=== PATIENT | male | born 1990 | race Caucasian/White ===

== ENCOUNTER 2025-01-06 20:23 | Outpatient (REF) | payer SELFPAY ==
[2025-01-06 20:24] VITALS: BP 151/81; PULSE 77; RESP 15; TEMP 36.8; O2SAT 98; BMI 27.8
--- OUTSIDE RECORDS SUMMARY | 2025-01-06 20:37 | XMS RPT_ITS | CCD ---
Author Organization [facility] Care Team Providers Care Instructor Business Education Name Role Phone GERARDO, MOSHE C Unavailable Unavailable GERARDO, MOSHE C Unavailable Unavailable GERARDO, MOSHE C Unavailable Unavailable NO, DOCTOR ON Unavailable Unavailable NO, DOCTOR ON Unavailable Unavailable Assessment, Health Risk Attending Josea ble Care Physician, No Primary Primary Care Unava ilable Care Physician, No Primary Referring Unava ilable Andrzej Hunt Attending Unavailable Care Physician, No Primary Primary Care Unava ilable Care Physician, No Primary Primary Care Lilianeva Chase Dhillon Attending Unavailable Care Physician, No Primary Referring Unava ilable Care Physician, No Primary Referring Unava ilable Care Physician, No Primary Primary Care Unava ilable Andrzej Hunt Attending Unavailable Care Physician, No Primary Primary Care Physicia n Unavailable Care Physician, No Primary Referring Provider Un available Andrzej Hunt Attending Physician Assessment, Health Risk Attending Physician Lilianev Chase Lamas Attending Physician Problems Active Problems Problem Classification Problem Date Documented Da te Episodic/Chronic Superficial injury; contusion (3 sources) Contusion of right knee, initial encounter; Translations: [Contusion of right knee, initial encounter] Onset: 07-05-2017 Episodic Past or Other Problems Problem Classification Problem Date Documented Date Episodic/Chronic Administrative/social admission (2 sources) Encounter for other administrative examinations; Translations: [Patient encounter status] Onset: 04-15-2024 04-27-2020 Episodic Results Test Name Value Interpretation Reference Range Facility Office Visit Reporton 2024 Office Visit Report [facility] [address] [place] [address] OFFICE VISIT Date of Service: 12/03/24 MR#: [id number] Acct: [id number] Patient: CRISTÓBAL SKINNER Rep #: [id number] : 1990 Provider: LILY Pérez Age/Sex: 34/M Location: [facility] Status: Signed Intake Vital Signs 04/06/23 08:20 Height 5 ft 10 in Intake Visit Reasons: FF PHYSICAL/TITO Allergies No Known Allergies Allergy (Verified 10/19/16 16:57) Office Procedures [facility] Billing Sheet Testing TB Test: Yes Employer Workplace Physicals EKG: Yes [employer]SHA Respiratory Questionnaire: Yes Spirometry (PFT): Yes PPD Procedure TB Med Used: Tuberculin PPD 5 tub. unit/0.1 mL intradermal injection solution was administered Lot number: [id number] Technical Service Engineer: SANOFI date: 03/16/27 PPD Location: Right forearm Date PPD Placed: 12/03/24 Time PPD Placed: 09:20 PPD Placed By: Jolie Erickson Assessment and Plan Assessment and Plan Orders: Orders POC TB PPD SKIN Test (Clinic) 12/05/24 Z02.89 - Encounter for other administrative examinations 12/09/24 0650 Date Andrzej BAUTISTA Cosigner Signature: Date (if applicable) CC: Normal [facility] Absolute lymphocyte countOrd ered By: HEALTH ASSESSMENT on 12-03-2024 Lymphocytes Auto (Unsp spec) [#/Vol] 2.12 10*3/uL 0.83-4.51 [facility] Absolute neutrophil countOrd ered By: HEALTH ASSESSMENT on 12-03-2024 Neutrophils (Bld) [#/Vol] 2.5 10*3/uL 2.0-7.7 [facility] Anion gap in Serum or Plasma Ordered By: HEALTH ASSESSMENT on 12-03-2024 Anion gap [Moles/Vol] 11 mmol/L 5-15 [facility] Automated lymphocyte count a s percentage of total leukocytesOrdered By: HEALTH ASSESSMENT on 12-03-2024 Lymphocytes/100 WBC Auto (Unsp spec) 37.9 % [facility] BUN/creatinine ratioOrdered By: HEALTH ASSESSMENT on 12-03-2024 Urea nitrogen/Creatinine [Mass ratio] 14.9 mg/mg 12-02 [facility] Basophil percentageOrdered B y: HEALTH ASSESSMENT on 12-03-2024 Basophils/100 WBC (Bld) 1.4 % High 0-1 [facility] Bilirubin Test strip Ql (U)O rdered By: HEALTH ASSESSMENT on 12-03-2024 Bilirubin Ql (U) Negative Negative [facility] Bilirubin, totalOrdered By: HEALTH ASSESSMENT on 12-03-2024 Bilirubin [Mass/Vol] 0.56 mg/dL 0.00-1.30 [facility] CBC W/Diff, Automatedon 11-14 Absolute Lymph 2.12 X10 3/uL Normal 0.83-4.51 [facility] Comment on above: Performed By: #### L 501.9910, L500.4050, L100.0100, L400.2010, L500.4100, M100.7900 #### [facility] [address] [place], [address] Absolute Neut 2.5 X10 3/uL Normal 2.0-7.7 [facility] Comment on above: Performed By: #### L 501.9910, L500.4050, L100.0100, L400.2010, L500.4100, M100.7900 #### [facility] [address] [place], [address] Basophils/100 WBC (Bld) 1.4 % High 0-1 [facility] Comment on above: Performed By: #### L 501.9910, L500.4050, L100.0100, L400.2010, L500.4100, M100.7900 #### [facility] [address] [place], [address] Eosinophils/100 WBC (Bld) 5.9 % High 0-5 [facility] Comment on above: Performed By: #### L 501.9910, L500.4050, L100.0100, L400.2010, L500.4100, M100.7900 #### [facility] [address] [place], [address] Erythrocyte distribution width (RBC) [Ratio] 12.5 % Normal 11.6-14.6 [facility] Comment on above: Performed By: #### L 501.9910, L500.4050, L100.0100, L400.2010, L500.4100, M100.7900 #### [facility] [address] [place], [address] Hematocrit (Bld) [Volume fraction] 39.4 % Low 40-54 [facility] Comment on above: Performed By: #### L 501.9910, L500.4050, L100.0100, L400.2010, L500.4100, M100.7900 #### [facility] [address] [place], [address] Hemoglobin (Bld) [Mass/Vol] 13.2 g/dL Normal 13.0-16.5 [facility] Comment on above: Performed By: #### L 501.9910, L500.4050, L100.0100, L400.2010, L500.4100, M100.7900 #### [facility] [address] [place], [address] IG% 0.400 Normal 0.0-0.9 [facility] Comment on above: Result Comment: IG% - Immature Granulocytes (promyelocytes, myelocytes and metamyelocytes) > 1% indicates that a LEFT SHIFT is Present. Performed By: #### L 501.9910, L500.4050, L100.0100, L400.2011, L500.4100, M100.7900 #### [facility] [address] [place], [address] Lymphocytes/100 WBC (Bld) 37.9 % Normal 19-41 [facility] Comment on above: Performed By: #### L 501.9910, L500.4050, L100.0100, L400.2010, L500.4100, M100.7900 #### [facility] [address] [place], [address] MCH (RBC) [Entitic mass] 29.3 pg Normal 27.0-32.0 [facility] Comment on above: Performed By: #### L 501.9910, L500.4050, L100.0100, L400.2010, L500.4100, M100.7900 #### [facility] [address] [place], [address] MCHC (RBC) [Mass/Vol] 33.5 g/dL Normal 32-36 [facility] Comment on above: Performed By: #### L 501.9910, L500.4050, L100.0100, L400.2010, L500.4100, M100.7900 #### [facility] [address] [place], [address] MCV (RBC) [Entitic vol] 87.4 fL Normal 80-94 [facility] Comment on above: Performed By: #### L 501.9910, L500.4050, L100.0100, L400.2010, L500.4100, M100.7900 #### [facility] [address] [place], [address] Monocytes/100 WBC (Bld) 9.1 % Normal 0-10 [facility] Comment on above: Performed By: #### L 501.9910, L500.4050, L100.0100, L400.2010, L500.4100, M100.7900 #### [facility] [address] [place], [address] Neutrophils/100 WBC (Bld) 45.3 % Low 47-70 [facility] Comment on above: Performed By: #### L 501.9910, L500.4050, L100.0100, L400.2010, L500.4100, M100.7900 #### [facility] [address] [place], [address] Nucleated RBC (Bld) [#/Vol] 0 10*3/uL Normal 0-5 [facility] Comment on above: Performed By: #### L 501.9910, L500.4050, L100.0100, L400.2010, L500.4100, M100.7900 #### [facility] [address] [place], [address] Platelet mean volume (Bld) [Entitic vol] 11.1 fL Normal 6.2-12.0 [facility] Comment on above: Performed By: #### L 501.9910, L500.4050, L100.0100, L400.2010, L500.4100, M100.7900 #### [facility] [address] [place], [address] Platelets (Bld) [#/Vol] 286 10*3/uL Normal 150-450 [facility] Comment on above: Performed By: #### L 501.9910, L500.4050, L100.0100, L400.2010, L500.4100, M100.7900 #### [facility] [address] [place], [address] RBC (Bld) [#/Vol] 4.51 10*6/uL Low 4.6-6.[address] [facility] Comment on above: Performed By: #### L 501.9910, L500.4050, L100.0100, L400.2010, L500.4100, M100.7900 #### [facility] [address] [place] [place], [address] RDW SD 40.1 fl Normal 35.1-43.9 [facility] Comment on above: Performed By: #### L 501.9910, L500.4050, L100.0100, L400.2010, L500.4100, M100.7900 #### [facility] [address] [place], [address] WBC (Bld) [#/Vol] 5.6 10*3/uL Normal 4.4-11.0 [facility] Comment on above: Performed By: #### L 501.9910, L500.4050, L100.0100, L400.2010, L500.4100, M100.7900 #### [facility] [address] [place], [place], [id number] Calculated very low density lipoprotein (VLDL) cholesterol measurementOrdered By: HEALTH ASSESSMENT on 12-03-2024 Calculated very low density lipoprotein (VLDL) cholesterol measurement 14 mg/dL 5-40 [facility] Carbon dioxide, total [Moles /volume] in Central venous bloodOrdered By: HEALTH ASSESSMENT on 12-03-2024 CO2 [Moles/Vol] 26.0 mmol/L 21.0-32.0 [facility] Chloride assayOrdered By: HE ALTH ASSESSMENT on 12-03-2024 Chloride [Moles/Vol] 100 mmol/L 98-108 [facility] Comprehensive Metabolic Prof ilon 12-03-2024 Albumin [Mass/Vol] 4.8 g/dL Normal 3.5-5.0 [facility] Comment on above: Performed By: #### L 501.9910, L500.4050, L100.0100, L400.2010, L500.4100, M100.7900 #### [facility] [address] [place], [place], [id number] Albumin/Globulin [Mass ratio] 1.7 {ratio} Normal 0.9-2.4 [facility] Comment on above: Performed By: #### L 501.9910, L500.4050, L100.0100, L400.2010, L500.4100, M100.7900 #### [facility] [address] [place] [place], [address] ALK PHOS 79 U/L Normal 40-129 [facility] Comment on above: Performed By: #### L 501.9910, L500.4050, L100.0100, L400.2011, L500.4100, M100.7900 #### [facility] [address] [place], [address] ALT [Catalytic activity/Vol] 21 U/L Normal <=46 [facility] Comment on above: Performed By: #### L 501.9910, L500.4050, L100.0100, L400.2010, L500.4100, M100.7900 #### [facility] [address] [place] [place], [address] AST [Catalytic activity/Vol] 24 U/L Normal <=37 [facility] Comment on above: Performed By: #### L 501.9910, L500.4050, L100.0100, L400.2010, L500.4100, M100.7900 #### [facility] [address] [place] [place], [address] Bilirubin [Mass/Vol] 0.56 mg/dL Normal 0.00-1.30 [facility] Comment on above: Performed By: #### L 501.9910, L500.4050, L100.0100, L400.2010, L500.4100, M100.7900 #### [facility] [address] [place], [address] BUN/CRE 14.9 RATIO Normal 10-20 [facility] Comment on above: Performed By: #### L 501.9910, L500.4050, L100.0100, L400.2010, L500.4100, M100.7900 #### [facility] [address] [place], [address] Calcium [Mass/Vol] 9.7 mg/dL Normal 7.6-11.0 [facility] Comment on above: Performed By: #### L 501.9910, L500.4050, L100.0100, L400.2011, L500.4100, M100.7900 #### [facility] [address] [place], [address] Chloride [Moles/Vol] 100 mmol/L Normal 98-108 [facility] Comment on above: Performed By: #### L 501.9910, L500.4050, L100.0100, L400.2010, L500.4100, M100.7900 #### [facility] [address] [place] [place], [address] CO2 [Moles/Vol] 26.0 mmol/L Normal 21.0-32.0 [facility] Comment on above: Performed By: #### L 501.9910, L500.4050, L100.0100, L400.2010, L500.4100, M100.7900 #### [facility] [address] [place], [address] Creatinine [Mass/Vol] 1.01 mg/dL Normal 0.70-1.20 [facility] Comment on above: Performed By: #### L 501.9910, L500.4050, L100.0100, L400.2010, L500.4100, M100.7900 #### [facility] [address] [place] [place], [address] GAP 11 Normal 5-15 [facility] Comment on above: Performed By: #### L 501.9910, L500.4050, L100.0100, L400.2010, L500.4100, M100.7900 #### [facility] [address] [place], [address] GFR/1.73 sq M.predicted among non-blacks MDRD (S/P/Bld) [Vol rate/Area] 101 mL/min/{1.73_m2} Normal >60 [facility] Comment on above: Result Comment: mL/m in/1.73m2 CKD-EPI Creatinine Equation (2020) Performed By: #### L 501.9910, L500.4050, L100.0100, L400.2010, L500.4100, M100.7900 #### [facility] [address] [place], [address] Globulin (S) [Mass/Vol] 2.8 g/dL Normal 2.2-4.2 [facility] Comment on above: Performed By: #### L 501.9910, L500.4050, L100.0100, L400.2010, L500.4100, M100.7900 #### [facility] [address] [place], [address] Glucose [Mass/Vol] 96 mg/dL Normal 70-99 [facility] Comment on above: Performed By: #### L 501.9910, L500.4050, L100.0100, L400.2010, L500.4100, M100.7900 #### [facility] [address] [place], [address] Potassium [Moles/Vol] 4.0 mmol/L Normal 3.3-5.1 [facility] Comment on above: Performed By: #### L 501.9910, L500.4050, L100.0100, L400.2010, L500.4100, M100.7900 #### [facility] [address] [place] [place], [address] Sodium [Moles/Vol] 137 mmol/L Normal 133-145 [facility] Comment on above: Performed By: #### L 501.9910, L500.4050, L100.0100, L400.2010, L500.4100, M100.7900 #### [facility] [address] [place] [place], [address] T PROT 7.6 g/dL Normal 5.9-8.4 [facility] Comment on above: Performed By: #### L 501.9910, L500.4050, L100.0100, L400.2011, L500.4100, M100.7900 #### [facility] [address] [place], [address] Urea nitrogen [Mass/Vol] 15 mg/dL Normal 4-19 [facility] Comment on above: Performed By: #### L 501.9910, L500.4050, L100.0100, L400.2011, L500.4100, M100.7900 #### [facility] [address] [place] [place], [address] Eosinophil percentageOrdered By: HEALTH ASSESSMENT on 12-03-2024 Eosinophils/100 WBC (Bld) 5.9 % High 0-5 [facility] Erythrocyte distribution wid th ratioOrdered By: HEALTH ASSESSMENT on 12-03-2024 Erythrocyte distribution width (RBC) [Ratio] 12.5 % 11.6-14.6 [facility] Erythrocyte distribution wid th standard deviationOrdered By: HEALTH ASSESSMENT on 12-03-2024 Erythrocyte distribution width (RBC) [Ratio] 40.1 fl 35.1-43.9 [facility] Glomerular filtration rate ( GFR) estimation/1.73 sq m using serum, plasma, or whole bOrdered By: HEALTH ASSESSMENT on 12-03-2024 GFR/1.73 sq M.predicted among non-blacks MDRD (S/P/Bld) [Vol rate/Area] 101 mL/min/{1.73_m2} >60 [facility] Comment on above: mL/min/1.73m2 CKD-EP I Creatinine Equation (2020) Hematocrit Auto (Bld) [Volum e fraction]Ordered By: HEALTH ASSESSMENT on 12-03-2024 Hematocrit (Bld) [Volume fraction] 39.4 % Low 40-54 [facility] Hemoglobin measurementOrdere d By: HEALTH ASSESSMENT on 12-03-2024 Hemoglobin (Bld) [Mass/Vol] 13.2 g/dL 13.0-16.5 [facility] Immature granulocytes/100 WB C Auto (Bld)Ordered By: HEALTH ASSESSMENT on 12-03-2024 Immature granulocytes/100 WBC (Bld) 0.400 % 0.0-0.9 [facility] Comment on above: IG% - Immature Granu locytes (promyelocytes, myelocytes and metamyelocytes) > 1% indicates that a LEFT SHIFT is Present. Ketones Test strip Ql (U)Ord ered By: HEALTH ASSESSMENT on 12-03-2024 Ketones Ql (U) Negative Negative [facility] LDL calc ser/plasOrdered By: HEALTH ASSESSMENT on 12-03-2024 Cholesterol in LDL [Mass/Vol] 115 mg/dL [facility] Comment on above: Bgscaebkia=315-949 m g/dL & Higher Fmnx=547 mg/dL or greaterSampson Equation 2020 for LDL-C Laboratory - Chemistry and C hemistry - challengeOrdered By: HEALTH ASSESSMENT on 12-03-2024 AST [Catalytic activity/Vol] 24 U/L <38 [facility] Lipid Profileon 12-03-2024 CHOL:HDL 3.[address] [facility] Comment on above: Performed By: #### L 501.9910, L500.4050, L100.0100, L400.2010, L500.4100, M100.7900 #### [facility] [address] [place], [place], [id number] (821) Cholesterol [Mass/Vol] 173 mg/dL Normal <=200 [facility] Comment on above: Result Comment: Chol esterol level, Desirable <200 mg/dL Borderline high cholesterol 200-239 mg/dL High cholesterol >=240 mg/dL Recommendations of the NCEP Adult Treatment Panel for the following risk-cutoff thresholds for the [place] population. Performed By: #### L 501.9910, L500.4050, L100.0100, L400.2010, L500.4100, M100.7900 #### [facility] [address] [place], [address] Cholesterol in HDL [Mass/Vol] 45 mg/dL Normal [facility] Comment on above: Result Comment: [place] onal Cholesterol Education Program (NCEP) guidelines: <40 mg/dL: Low HDL-cholesterol (major risk factor for CHD) >= 60 mg/dL: High HDL-cholesterol (negative risk factor for CHD) HDL-cholesterol is affected by a number of factors, e.g. smoking, exercise, hormones, sex and age. Performed By: #### L 501.9910, L500.4050, L100.0100, L400, L500.4100, M100.7900 #### [facility] [address] [place], [address] Cholesterol in LDL [Mass/Vol] 115 mg/dL Normal [facility] Comment on above: Result Comment: Bord aevvkw=853-429 mg/dL Higher Imwp=105 mg/dL or greater Kim Equation 2020 for LDL-C Performed By: #### L 501.9910, L500.4050, L100.0100, L400, L500.4100, M100.7900 #### [facility] [address] [place], [address] Cholesterol in VLDL [Mass/Vol] 14 mg/dL Normal 5-40 [facility] Comment on above: Performed By: #### L 501.9910, L500.4050, L100.0100, L400, L500.4100, M100.7900 #### [facility] [address] [place] [place], [address] Triglyceride [Mass/Vol] 68 mg/dL Normal [facility] Comment on above: Result Comment: The drugs N-Acetylcysteine and Metamizole may falsely depress this assay. Normal range: <150 mg/dL Borderline High: 150-199 mg/dL High: 200-499 mg/dL Very High: >500 mg/dL Performed By: #### L 501.9910, L500.4050, L100.0100, L400.2010, L500.4100, M100.7900 #### [facility] [address], [address] MCV (mean corpuscular volume ) determinationOrdered By: HEALTH ASSESSMENT on 12-03-2024 MCV (RBC) [Entitic vol] 87.4 fL 80-94 [facility] Mean corpuscular hemoglobin (MCH) determinationOrdered By: HEALTH ASSESSMENT on 12-03-2024 MCH (RBC) [Entitic mass] 29.3 pg 27.0-32.0 [facility] Mean corpuscular hemoglobin concentration (MCHC) determinationOrdered By: HEALTH ASSESSMENT on 12-03-2024 MCHC (RBC) [Mass/Vol] 33.5 g/dL 32-36 [facility] Mean platelet volume determi nationOrdered By: HEALTH ASSESSMENT on 12-03-2024 Platelet mean volume (Bld) [Entitic vol] 11.1 fL 6.2-12.0 [facility] Monocyte percentageOrdered B y: HEALTH ASSESSMENT on 12-03-2024 Monocytes/100 WBC (Bld) 9.1 % 0-10 [facility] Neutrophil percentageOrdered By: HEALTH ASSESSMENT on 12-03-2024 Neutrophils/100 WBC (Bld) 45.3 % Low 47-70 [facility] No Panel InformationOrdered By: Andrzej Graves on 12-03-2024 Result Reviewed By LORENA BARNEY [facility] Tuberculin PPD Skin Test (Clinic) Negative [facility] Nucleated red blood cell per centageOrdered By: HEALTH ASSESSMENT on 12-03-2024 Nucleated RBC/100 WBC (Bld) [Ratio] 0 % 0-5 [facility] PSA,Total - Annual Screenon 12-03-2024 PSA,TOT SCREEN 1.19 ng/mL Normal 0.02-4.00 [facility] Comment on above: Result Comment: This test was performed using the [employer] tPSA method. Measured values of a patient??sample can vary depending on the testing procedure used. PSA values determined on patient samples by different testing procedures cannot be used interchangeably. If there is a change in PSA assays while monitoring therapy, sequential testing should be performed to confirm baseline values. Performed By: #### L 501.9910, L500.4050, L100.0100, L400.2011, L500.4100, M100.7900 #### [facility] [address], [address] Platelet countOrdered By: HE ALTH ASSESSMENT on 12-03-2024 Platelets (Bld) [#/Vol] 286 10*3/uL 150-450 [facility] Potassium measurement (mass/ volume)Ordered By: HEALTH ASSESSMENT on 12-03-2024 Potassium (Unsp spec) [Mass/Vol] 4.0 mmol/L 3.3-5.1 [facility] Protein Test strip Ql (U)Ord ered By: HEALTH ASSESSMENT on 12-03-2024 Protein Ql (U) Negative Negative [facility] RBC Auto (Bld) [#/Vol]Ordere d By: HEALTH ASSESSMENT on 12-03-2024 RBC (Bld) [#/Vol] 4.51 10*6/uL Low 4.6-6.[address] [facility] Screening total cholesterol/ high density lipoprotein (HDL) cholesterol ratioOrdered By: HEALTH ASSESSMENT on 12-03-2024 Cholesterol.total/Choles terol in HDL [Mass ratio] 3.83 {ratio} [facility] Serum creatinine measurement (mass/volume)Ordered By: HEALTH ASSESSMENT on 12-03-2024 Creatinine [Mass/Vol] 1.01 mg/dL 0.70-1.20 [facility] Serum globulin measurementOr dered By: HEALTH ASSESSMENT on 12-03-2024 Globulin (S) [Mass/Vol] 2.8 g/dL 2.2-4.2 [facility] Serum glucose measurement (m ass/volume)Ordered By: HEALTH ASSESSMENT on 12-03-2024 Glucose [Mass/Vol] 96 mg/dL 70-99 [facility] Serum or plasma alanine levy otransferase (ALT) measurementOrdered By: HEALTH ASSESSMENT on 12-03-2024 ALT [Catalytic activity/Vol] 21 U/L <47 [facility] Serum or plasma albumin avis urement (mass/volume)Ordered By: HEALTH ASSESSMENT on 12-03-2024 Albumin [Mass/Vol] 4.8 g/dL 3.5-5.0 [facility] Serum or plasma albumin/glob ulin mass ratioOrdered By: HEALTH ASSESSMENT on 12-03-2024 Albumin/Globulin [Mass ratio] 1.7 {ratio} 0.9-2.4 [facility] Serum or plasma alkaline daphne sphatase measurementOrdered By: HEALTH ASSESSMENT on 12-03-2024 ALP [Catalytic activity/Vol] 79 U/L 40-129 [facility] Serum or plasma calcium avis urement (mass/volume)Ordered By: HEALTH ASSESSMENT on 12-03-2024 Calcium [Mass/Vol] 9.7 mg/dL 7.6-11.0 [facility] Serum or plasma cholesterol in HDL measurement (mass/volume)Ordered By: HEALTH ASSESSMENT on 12-03-2024 Cholesterol in HDL [Mass/Vol] 45 mg/dL >40 [facility] Comment on above: National Cholesterol Education Program (NCEP) guidelines:<40 mg/dL: Low HDL-cholesterol (major risk factor for CHD)>= 60 mg/dL: High HDL-cholesterol (negative risk factor for CHD)HDL-cholesterol is affected by a number of factors, e.g. smoking, exercise, hormones, sex and age. Serum or plasma cholesterol measurement (mass/volume)Ordered By: HEALTH ASSESSMENT on 12-03-2024 Cholesterol [Mass/Vol] 173 mg/dL <201 [facility] Comment on above: Cholesterol level, D esirable <200 mg/dLBorderline high cholesterol 200-239 mg/dLHigh cholesterol >=240 mg/dLRecommendations of the NCEP Adult Treatment Panel for the following risk-cutoff thresholds for the [place] population. Serum or plasma urea nitroge n measurement (mass/volume)Ordered By: HEALTH ASSESSMENT on 12-03-2024 Urea nitrogen [Mass/Vol] 15 mg/dL 4-19 [facility] Sodium levelOrdered By: HEAL TH ASSESSMENT on 12-03-2024 Sodium [Moles/Vol] 137 mmol/L 133-145 [facility] Stool Occult Blood iFOBon STOB Negative Normal [facility] Comment on above: Performed By: #### L 501.9910, L500.4050, L100.0100, L400.2011, L500.4100, M100.7900 #### [facility] [address] [place], [address] Stool gastrointestinal hemog lobin detection by immunologic methodOrdered By: HEALTH ASSESSMENT on 12-03-2024 Lower GI hemoglobin IA Ql (Stl) [facility] Total proteinOrdered By: HEA LTH ASSESSMENT on 12-03-2024 Protein [Mass/Vol] 7.6 g/dL 5.9-8.4 [facility] Triglycerides measurementOrd ered By: HEALTH ASSESSMENT on 12-03-2024 Triglyceride [Mass/Vol] 68 mg/dL <199 [facility] Comment on above: The drugs N-Acetylcy steine and Metamizole may falsely depress this assay. Normal range: <150 mg/dLBorderline High: 150-199 mg/dLHigh: 200-499 mg/dLVery High: >500 mg/dL Urinalysis, Routine (Dipstic k)on 12-03-2024 BILIRUBIN URINE Negative Normal Negative [facility] Comment on above: Order Comment: CLEAN CATCH Performed By: #### L 501.9910, L500.4050, L100.0100, L400.2010, L500.4100, M100.7900 #### [facility] [address] [place] [place], [address] GLUCOSE, UR Normal Normal Normal [facility] Comment on above: Order Comment: CLEAN CATCH Performed By: #### L 501.9910, L500.4050, L100.0100, L400.2010, L500.4100, M100.7900 #### [facility] [address] [place] [place], [address] KETONE UR Negative Normal Negative [facility] Comment on above: Order Comment: CLEAN CATCH Performed By: #### L 501.9910, L500.4050, L100.0100, L400.2010, L500.4100, M100.7900 #### [facility] [address] [place] [place], [address] LEUK ESTERASE Negative Normal Negative [facility] Comment on above: Order Comment: CLEAN CATCH Performed By: #### L 501.9910, L500.4050, L100.0100, L400.2010, L500.4100, M100.7900 #### [facility] [address] [place], [address] OCCULT BLOOD-UR Negative Normal Negative [facility] Comment on above: Order Comment: CLEAN CATCH Performed By: #### L 501.9910, L500.4050, L100.0100, L400.2010, L500.4100, M100.7900 #### [facility] [address] [place] [place], [address] pH UR 7.0 Normal 5.0 - 8.0 [facility] Comment on above: Order Comment: CLEAN CATCH Performed By: #### L 501.9910, L500.4050, L100.0100, L400.2010, L500.4100, M100.7900 #### [facility] [address] [place] [place], [address] PROT DIPSTX Negative Normal Negative [facility] Comment on above: Order Comment: CLEAN CATCH Performed By: #### L 501.9910, L500.4050, L100.0100, L400.2010, L500.4100, M100.7900 #### [facility] [address] [place] [place], [address] SP.GR. DIPSTX 1.005 Normal 1.002-1.030 [facility] Comment on above: Order Comment: CLEAN CATCH Performed By: #### L 501.9910, L500.4050, L100.0100, L400.2010, L500.4100, M100.7900 #### [facility] [address] [place] [place], [address] UROBILI Normal Normal Normal [facility] Comment on above: Order Comment: CLEAN CATCH Performed By: #### L 501.9910, L500.4050, L100.0100, L400.2010, L500.4100, M100.7900 #### [facility] [address] [place], [place], [id number] Urinalysis, Routine (Dipstic k)Ordered By: HEALTH ASSESSMENT on 12-03-2024 Clarity (U) Clear Normal Clear [facility] Comment on above: Order Comment: CLEAN CATCH Performed By: #### L 501.9910, L500.4050, L100.0100, L400.2011, L500.4100, M100.7900 #### [facility] [address] [place] [place], [address] Color (U) Yellow Normal Yellow [facility] Comment on above: Order Comment: CLEAN CATCH Performed By: #### L 501.9910, L500.4050, L100.0100, L400.2011, L500.4100, M100.7900 #### [facility] [address] [place], [place], [id number] Nitrite Ql (U) Negative Normal Negative [facility] Comment on above: Order Comment: CLEAN CATCH Performed By: #### L 501.9910, L500.4050, L100.0100, L400.2010, L500.4100, M100.7900 #### [facility] [address] [place], [place], [id number] Urine glucose detectionOrder ed By: HEALTH ASSESSMENT on 12-03-2024 Glucose Ql (U) Normal mg/dl Normal [facility] Urine leukocyte esterase det ection by dipstickOrdered By: HEALTH ASSESSMENT on 12-03-2024 Leukocyte esterase Test strip Ql (U) Negative Negative [facility] Urine pHOrdered By: HEALTH A SSESSMENT on 12-03-2024 pH (U) 7.0 [pH] 5.0 - 8.0 [facility] Urine specific gravity measu rementOrdered By: HEALTH ASSESSMENT on 12-03-2024 Specific gravity (U) [Rel density] 1.005 1.002-1.030 [facility] Urine urobilinogen measureme ntOrdered By: HEALTH ASSESSMENT on 12-03-2024 Urobilinogen Ql (U) Normal mg/dl Normal [facility] White blood cell (WBC) count Ordered By: HEALTH ASSESSMENT on 12-03-2024 WBC (Bld) [#/Vol] 5.6 10*3/uL 4.4-11.0 [facility] Office Visit Reporton 2024 Office Visit Report [facility] [address] [place] [address] OFFICE VISIT Date of Service: 04/15/24 MR#: [id number] Acct: [id number] Patient: CRISTÓBAL SKINNER Rep #: [id number] : 1990 Provider: LILY Pérez Age/Sex: 33/M Location: [facility]NOW Status: Signed Intake Vital Signs 04/06/23 08:20 Height 5 ft 10 in Intake Visit Reasons: AUDIOGRAM, TITMUS/ WFD Allergies No Known Allergies Allergy (Verified 10/19/16 16:57) Office Procedures [facility] Billing Sheet Testing Hearing (Audiogram) Test: Yes Titmus Screening: Yes Employer Workplace Physicals Physical Exam: Yes 04/29/24 0620 Date Andrzej BAUTISTA Cosigner Signature: Date (if applicable) CC: Normal [facility] Urgent Care Visit Reporton 0 04-15-2024 Urgent Care Visit Report [facility] [address], [address] [place] [address] OFFICE VISIT Date of Service: 04/15/24 MR#: [id number] Acct: [id number] Name: CRISTÓBAL SKINNER Rep #: [id number] : 1990 Provider: LILY Pérez Age/Sex: 33/M Location: [facility]NOW Status: Signed Intake Vital Signs 04/06/23 08:20 Height 5 ft 10 in Intake Visit Reasons: FF PHYSICAL / WFD Allergies No Known Allergies Allergy (Verified 10/19/16 16:57) HPI HPI Details: CRISTÓBAL SKINNER, is a 33 M who presents to the office today for Office Procedures Physical Exam Coding PE Coding Additional Details: 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 Office Visit Reporton 2023 Office Visit Report [facility] [address] [place] [address] OFFICE VISIT Date of Service: 11/21/23 MR#: [id number] Acct: [id number] Patient: CRISTÓBAL SKINNER Rep #: [id number] : 1990 Provider: VIRGINIA Walker Age/Sex: 33/M Location: [facility]NOW Status: Signed with Addenda ADDENDUM by CARMEN Trujillo on 12/26/23 at 1556 Office Procedure Documentation entered by Paige Trujillo MA 12/26/23 15:56: [facility] Billing Sheet Testing TB Test: Yes Employer Workplace Physicals Basic Metabolic Profile (BMP): Yes CBC w/Diff: Yes Complete Metabolic Panel (CMP): Yes EKG: Yes Hemocult: Yes Lipid Panel: Yes OSHA Respiratory Questionnaire: Yes Spirometry (PFT): Yes Urinalysis: Yes Date cc: * Signed Intake Vital Signs 04/06/23 08:20 Height 5 ft 10 in Intake Visit Reasons: FF WELLNESS Allergies No Known Allergies Allergy (Verified 10/19/16 16:57) Office Procedures [facility] Billing Sheet Testing TB Test: Yes Vaccine Flu Vaccine (Single Dose): Yes Employer Workplace Physicals Basic Metabolic Profile (BMP): Yes CBC w/Diff: Yes Complete Metabolic Panel (CMP): Yes EKG: Yes Hemocult: Yes Lipid Panel: Yes OSHA Respiratory Questionnaire: Yes Spirometry (PFT): Yes Urinalysis: Yes Assessment and Plan Assessment and Plan Orders: Orders 12 Lead EKG performed by [facility] 11/21/23 Z02.89 - Encounter for other administrative examinations 12/26/23926 Date Shawnee Bryant [employer] Cosigner Signature: Date (if applicable) CC: Normal [facility] 05-18-2020 [facility] Office Visit (PETE) CRISTÓBAL SKINNER ([id number]) 1990 M Date Time Provider Department 05/18/20 10:00 AM RIA HAWTHORNE During your visit today, we recorded the following information about you: Pulse Blood pressure Weight Height 51/minute 112/76 84.8 kg 1.806 m Ria Hawthorne RN APRN.[facility] 05/18/2020 8:49 PM Signed DEPARTMENT OF GASTROENTEROLOGY - NEW PATIENT/CONSULT REASON FOR VISIT Cristóbal Skinner is a 29 year old male who is scheduled at the request of Aly Lee III for No chief complaint on file.. My final recommendations will be communicated back to the requesting physician by the way of the shared medical record, fax, or via [place] Mail The patient was seen by Aly Lee on 04/17/2020, leading to this consultation. That note has been reviewed and part as follows: SUBJECTIVE: This is a 29 year old male that is here today for 1. wellness exam 2. constipation for few mos.since Oct. Has been requiring increasing doses and frequency of laxatives. Wt lifting and cardio for > 3 d/wk. Normal appetite. Using metamucil daily. Stool q3 days, hard . 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 MGF of colon ca age 75 HISTORY OF PRESENT ILLNESS Cristóbal Skinner is a 29 year old male who presents today for an evaluation of constipation. Patient siad symptoms started since November 2019 the only thing he did mention that he started new was a new job and was drinking protein powder for workout - that he noticed the constipation - he stopped drinking the protein powder but the constipation has never improved - He states sometimes he will have the urge to go but unable to have a bowel movement. He denies blood or black stool, nausea, vomiting or change in weight -Denies abdominal pain - states his only symptoms are bloating and gas with constipation feeling. His stools would be firm and hard and only going a little at a time and feels that he has not completely emptied - he started taking different OTC laxatives to help him go - which he believes did not help - he sates it would sometimes weeks bowel movements Patient has been taking 1 cap full of miralax once daily with metamucil once daily - he goes to the bathroom daily but it's a small amount - Today he had a large BM Patient states he does drink a good amount of water a day He said that he does not notice any food that triggers symptoms - he is a meat and potato alexey - recent labs neg occult in Nov 2019 PAST MEDICAL HISTORY Diagnosis Date - Anger - GERD (gastroesophageal reflux disease) PAST SURGICAL HISTORY Procedure Laterality Date - NONE Current Outpatient Medications Medication Sig Dispense Refill - omeprazole (PRILOSEC ORAL) Take by mouth as needed. - polyethylene glycol 3350 (MIRALAX) 17 gram/dose powder Take 1 cap full twice daily 507 g 3 No current facility-administere d medications for this visit. ALLERGIES No Known Allergies Social History Tobacco Use - Smoking status: Never Smoker - Smokeless tobacco: Never Used Substance Use Topics - Alcohol use: Yes Comment: 0-2 drinks per week - Drug use: No FAMILY HISTORY (grandparents, parents, brothers, sisters, aunts, or uncles) Ulcerative Colitis: No Crohn's Disease: No Colon Cancer: Mother's Father Colon CA Colon Polyps: No IBS: No Celiac disease: No PHYSICAL EXAMINATION BP 112/76 Pulse 51 Ht 5' 11.102 (1.81m) Wt 187 lb (84.8kg) SpO2 99% BMI 26.01 kg/(m2). General Appearance: Well appearing, alert, in no acute distress, well-hydrated, well nourished. Lungs:breath sounds clear to auscultation bilaterally, no crackles, rhonchi, or wheezes Heart: regular rate and rhythm, no murmurs or gallops. Abdomen: not distended, normal bowel sounds, soft and depressible, no guarding or rebound, no palpable mass, no organomegaly, non tender Rectal exam: Deferred. Extremities: no cyanosis or edema Skin: no jaundice, no spider angiomas, no palmar erythema Neuro:alert, oriented x 3, pleasant and in no acute distress IMPRESSION (K59.04) Chronic idiopathic constipation (primary encounter diagnosis) ASSESSMENT/PLAN: 1. Chronic idiopathic constipation - ICD9: 564.00, ICD10: K59.04 - XR ABDOMEN 1V SUPINE - POLYETHYLENE GLYCOL 3350 17 GRAM/DOSE ORAL POWDER - educated patient on increasing water intake and fiber provided patient with instructions - increase miralax twice daily Plan is to follow up in one month monitor stool, frequency along with diet changes with miralax I spent a total of 30 minutes on the date of the service which included preparing to see the patient, [id number] patient care, completing clinical documentation, obtaining and/or reviewing separately obtained history, performing a medically appropriate examination and counseling and educating the patient/family/careg adonis. Tania Hernandez APRN.C (more content not included)... Normal [facility] HISTORY PHYSICALon HISTORY PHYSICAL HNO ID: [id number] Author: Ria Hawthorne Service: ? Author Type: Nurse Practitioner Type: HANDP Filed: 05/18/2020 8:49 PM Note Text: DEPARTMENT OF GASTROENTEROLOGY - NEW PATIENT/CONSULT REASON FOR VISIT Cristóbal Skinner is a 29 year old male who is scheduled at the request of Aly Lee III for No chief complaint on file.. My final recommendations will be communicated back to the requesting physician by the way of the shared medical record, fax, or via [place] Mail The patient was seen by Aly Lee on 04/17/2020, leading to this consultation. That note has been reviewed and part as follows: SUBJECTIVE: This is a 29 year old male that is here today for 1. wellness exam 2. constipation for few mos.since Oct. Has been requiring increasing doses and frequency of laxatives. Wt lifting and cardio for > 3 d/wk. Normal appetite. Using metamucil daily. Stool q3 days, hard . 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 MGF of colon ca age 75 HISTORY OF PRESENT ILLNESS Cristóbal Skinner is a 29 year old male who presents today for an evaluation of constipation. Patient siad symptoms started since November 2019 the only thing he did mention that he started new was a new job and was drinking protein powder for workout - that he noticed the constipation - he stopped drinking the protein powder but the constipation has never improved - He states sometimes he will have the urge to go but unable to have a bowel movement. He denies blood or black stool, nausea, vomiting or change in weight -Denies abdominal pain - states his only symptoms are bloating and gas with constipation feeling. His stools would be firm and hard and only going a little at a time and feels that he has not completely emptied - he started taking different OTC laxatives to help him go - which he believes did not help - he sates it would sometimes weeks bowel movements Patient has been taking 1 cap full of miralax once daily with metamucil once daily - he goes to the bathroom daily but it's a small amount - Today he had a large BM Patient states he does drink a good amount of water a day He said that he does not notice any food that triggers symptoms - he is a meat and potato alexey - recent labs neg occult in Nov 2019 PAST MEDICAL HISTORY Diagnosis Date - Anger - GERD (gastroesophageal reflux disease) PAST SURGICAL HISTORY Procedure Laterality Date - NONE Current Outpatient Medications Medication Sig Dispense Refill - omeprazole (PRILOSEC ORAL) Take by mouth as needed. - polyethylene glycol 3350 (MIRALAX) 17 gram/dose powder Take 1 cap full twice daily 507 g 3 No current facility-administere d medications for this visit. ALLERGIES No Known Allergies Social History Tobacco Use - Smoking status: Never Smoker - Smokeless tobacco: Never Used Substance Use Topics - Alcohol use: Yes Comment: 0-2 drinks per week - Drug use: No FAMILY HISTORY (grandparents, parents, brothers, sisters, aunts, or uncles) Ulcerative Colitis: No Crohn's Disease: No Colon Cancer: Mother's Father Colon CA Colon Polyps: No IBS: No Celiac disease: No PHYSICAL EXAMINATION BP 112/76 Pulse 51 Ht 5' 11.102 (1.81m) Wt 187 lb (84.8kg) SpO2 99% BMI 26.01 kg/(m2). General Appearance: Well appearing, alert, in no acute distress, well-hydrated, well nourished. Lungs:breath sounds clear to auscultation bilaterally, no crackles, rhonchi, or wheezes Heart: regular rate and rhythm, no murmurs or gallops. Abdomen: not distended, normal bowel sounds, soft and depressible, no guarding or rebound, no palpable mass, no organomegaly, non tender Rectal exam: Deferred. Extremities: no cyanosis or edema Skin: no jaundice, no spider angiomas, no palmar erythema Neuro:alert, oriented x 3, pleasant and in no acute distress IMPRESSION (K59.04) Chronic idiopathic constipation (primary encounter diagnosis) ASSESSMENT/PLAN: 1. Chronic idiopathic constipation - ICD9: 564.00, ICD10: K59.04 - XR ABDOMEN 1V SUPINE - POLYETHYLENE GLYCOL 3350 17 GRAM/DOSE ORAL POWDER - educated patient on increasing water intake and fiber provided patient with instructions - increase miralax twice daily Plan is to follow up in one month monitor stool, frequency along with diet changes with miralax I spent a total of 30 minutes on the date of the service which included preparing to see the patient, [id number] patient care, completing clinical documentation, obtaining and/or reviewing separately obtained history, performing a medically appropriate examination and counseling and educating the patient/family/careg adonis. Tania Hernandez APRN.[employer] May 18, 2020 This encounter was performed by Tania Hernandez APRN, under my supervision and I have reviewed her documentation. I performed an examination as well. I concur with the assessment and plan. Ria Hawthorne RN APRN.[employer] Normal [facility] CNOVon 04-17-2020 [facility] Office Visit (FAMPWS) CRISTÓBAL SKINNER ([id number]) 1990 M Date Time Provider Department 04/17/20 9:40 AM ALY LEE III During your visit today, we recorded the following information about you: Pulse Respiration Blood pressure Weight 72/minute 16/minute 112/76 83.5 kg Height 1.803 m Aly Lee III MD 04/17/2020 1:00 PM Signed SUBJECTIVE: This is a 29 year old male that is here today for 1. wellness exam 2. constipation for few mos.since Oct. Has been requiring increasing doses and frequency of laxatives. Wt lifting and cardio for > 3 d/wk. Normal appetite. Using metamucil daily. Stool q3 days, hard . 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 MGF of colon ca age 75. PAST MEDICAL HISTORY Diagnosis Date - Anger - GERD (gastroesophageal reflux disease) Current Outpatient Medications on File Prior to Visit Medication Sig - FLUoxetine (PROZAC) 20 mg capsule Take 1 capsule by mouth once daily. - omeprazole (PRILOSEC ORAL) Take by mouth as needed. No current facility-administere d medications on file prior to visit. FAMILY HISTORY Problem Relation Age of Onset - None Mother - None Father - other (myocardial infarction [Other]) Maternal Uncle 33 of [place] Social History Tobacco Use - Smoking status: Never Smoker - Smokeless tobacco: Never Used Substance Use Topics - Alcohol use: Yes Comment: 0-2 drinks per week - Drug use: No ventricular septal defect . OBJECTIVE: APPEARANCE Well appearing, alert, in no acute distress, well-hydrated, well nourished. NECK Supple, no adenopathy; thyroid symmetric, normal size, no bruits HEART RRR with normal S1 and S2, no murmurs, no gallops, no JVD appreciated LUNG clear to auscultation ABDOMEN bowel sounds normoactive, no bruits, soft, non-tender, non-distended, without organomegaly or palpable masses, no tenderness to palpation BACK: no pain to palpation EXTREMITIES Extremities normal, No deformities, No skin discoloration, No edema and Normal pulses bilaterally. NEURO Awake, alert and oriented x 3, Normal gait, No involuntary motions. and Appearance: well dressed well groomed, cooperative and pleasant Behavior: good eye contact Speech: fluent and coherent Mood: euthymic Affect: appropriate Perceptions: none Thought process: goal directed Thought Content: normal Intelligence level: normal Insight: good Judgment: good Lab Results for CRISTÓBAL SKINNER ( ) as of 04/17/2020 09:59 Ref. Range 12/11/2019 00:00 NA Latest Ref Range: 136 - 145 mmol/L 139 K Latest Ref Range: 3.5 - 5.1 mmol/L 4.1 Chloride Latest Ref Range: 98 - 107 MEQ/L 104 CO2 Latest Ref Range: 21 - 32 MEQ/L 30.0 BUN Latest Ref Range: 7 - 18 MG/DL 13 Creatinine Latest Ref Range: 0.6 - 1.3 MG/DL 1.00 Glucose Latest Ref Range: 74 - 106 MG/DL 87 Albumin Latest Ref Range: 3.2 - 4.6 gm/dL 4.5 AST Latest Ref Range: 8 - 37 U/L 17 Triglyceride Latest Ref Range: 149 mg/dL 41 PSA. Unknown 1.18 WBC Latest Ref Range: 3.9 - 11 K/uL 5.4 RBC Latest Ref Range: 4 - 6 M/uL 4.39 HGB Latest Ref Range: 14 - 16.5 g/dL 13.0 (A) MCV Latest Ref Range: 79 - 98 fL 89.7 MCH Latest Ref Range: 25.4 - 34.6 pg 29.6 MCHC Latest Ref Range: 30 - 36 g/dL 33.0 MPV Latest Ref Range: 7.4 - 10.4 fL 11.1 (A) HCT Latest Ref Range: 39 - 55 % 39.4 Platelet Latest Ref Range: 140 - 440 K/uL 295 Blood Type Recheck 2 Unknown A POS Alk Phos Total Latest Ref Range: 45 - 117 U/L 74 ALT (SGPT) Latest Ref Range: 12 - 78 U/L 25 BASO % Latest Ref Range: 0 - 1.5 % 1.1 Bili Total Latest Ref Range: 0.2 - 1 mg/dL 0.50 Calcium Latest Ref Range: 8.5 - 10.1 mg/dL 8.9 Cholesterol, Total Latest Ref Range: 0 - 200 MG/DL 144 EOS % Latest Ref Range: 1 - 3 % 3.7 (A) GFR Latest Units: mL/MIN 94 GFR AFR AMER Latest Units: mL/MIN 114 HDC-L Latest Ref Range: 41 mg/dL 55 (A) LDL Chol, calculated Latest Ref Range: 130 MG/DL 81 LYMPH % Latest Ref Range: 20 - 30 % 28.8 LYMPH ABS Latest Ref Range: 1.2 - 4 K/uL 1.56 MONO % Latest Ref Range: 2 - 8 % 9.0 (A) NEUT % Latest Ref Range: 40 - 74 % 57.2 NEUT ABS Latest Ref Range: 1.9 - 8 K/uL 3.1 Total Protein Latest Ref Range: 6.4 - 8.2 gm/dL 8.1 ASSESSMENT: recent onset constipation --?IBS with constipation? FHx of colon cancer PLAN: T4, TSH GI referral-consider colonoscopy healthy high fiber diet and stay well hydrated wellness form completed daily metamucil--may use miralax as needed Aly Lee III MD Medical Decision Making: Problems: Moderate: New problem with uncertain prognosis Data: Unique test result(s) reviewed: 3+ Unique test(s) ordered: 2 Risk: Moderate: Drug management Medical Decision Making Level: 4 - Moderate SHADI Gregory MD, III MD 04/17/2020 10:22 AM Signed PLAN: T4, TSH GI referral-consider colonoscopy healthy high fiber (more content not included)... Normal [facility] Free T4on 04-17-2020 Free T4 [Mass/Vol] 1.3 ng/dL Normal 0.9-1.7 [facility] Comment on above: Performed By: #### T , FT4 #### [facility] [address] [place] [address] TSHon 04-17-2020 TSH Qn 1.260 m[IU]/L Normal 0.270-4.200 [facility] Comment on above: Performed By: #### T , FT4 #### [facility] [address] [place], [place] [address] HBSABon 01-07-2019 Hep B Surf Ab 81.9 mIU/mL Normal [facility] ([place]) Comment on above: Result Comment: Anti -HBs Interpretation: 0 to <5.0 mIU/mL Negative Patient is considered to be not immune to infection with HBV. >/= 5.0 and <12.0 mIU/mL Equivocal Unable to determine if anti-HBs is present at levels consistent with immunity. Patient's immune status should be further assessed by considering other clinical information or retesting another sample drawn at a later time. >/= 12.0 mIU/mL Positive Patient is considered to be immune to infection with HBV. It has not been determined what the clinical significance is for values greater than or equal to 12.0 mIU/mL, other than the individual is considered to be immune to HBV infection. Performed By: #### L IPID, HBSAB #### [address] [address] LIPIDon 01-05-2019 Cholesterol in HDL [Mass/Vol] 43 mg/dL Normal 40-59 [facility] ([place]) Comment on above: Result Comment: HDL Reference Interval: Less than 40 Low - high risk 60 or above Optimal/lowers risk Performed By: #### L IPID, HBSAB #### [address] [address] Cholesterol in LDL [Mass/Vol] 103 mg/dL Normal 0-129 [facility] ([place]) Comment on above: Result Comment: LDL is a calculated result and requires a 12-hr fast. LDL Reference Interval: Less than 100 Optimal 100-129 Near or above optimal 130-159 Borderline high risk 160-189 High risk 190 and above Very high risk Performed By: #### L IPID, HBSAB #### [address] [address] Cholesterol [Mass/Vol] 160 mg/dL Normal 50-199 [facility] ([place]) Comment on above: Result Comment: Chol esterol Reference Interval: Less than 200 Desirable 200-239 Borderline high risk 240 and above High risk Performed By: #### L IPID, HBSAB #### [facility] [address] [place] [address] Triglyceride [Mass/Vol] 70 mg/dL Normal 3-149 [facility] ([place]) Comment on above: Result Comment: Trig lyceride Reference Interval: Less than 150 Normal 150-199 Borderline high risk 200-499 High risk 500 or higher Very high risk Performed By: #### L IPID, HBSAB #### [facility] [address] [place] [address] EMERGENCY REPORTon 8 EMERGENCY REPORT [facility] EMERGENCY ROOM REPORT NAME ACCOUNT SEX AGE ADMIT DISCHARGE PT MED. RECORD# NUMBER DATE DATE TYPE CRISTÓBAL SKINNER [id number] M 07/05/17 07/05/17 [id number] ROOM: ER DATE OF : 1990 DICTATING PHYSICIAN: Moshe Gerardo CHIEF COMPLAINT: Right knee pain. HISTORY OF PRESENT ILLNESS: Patient was at work and was working with a firehose and the nozzle of the hose came up and struck him in the right knee, mainly coming over the right patellar area. He is complaining of pain and some swelling to that area, particularly proximal and medially at the kneecap. He is able to weight bear. He is able to move the leg with pain. He has had a previous patellar fracture and is concerned about a reinjury. No numbness or tingling to his extremities. PAST MEDICAL HISTORY: Negative for any chronic medical problems. MEDICATIONS: Takes no medications. ALLERGIES: No known drug allergies. SOCIAL HISTORY: He does not smoke. This did occur at work. PHYSICAL EXAMINATION: This is a 26-year-old male who is alert and appropriate. Patient does not appear toxic or in acute distress. Skin is pink, warm and dry. Vital signs are essentially all within normal limits. Exam is focused to the right lower extremity. Patient has a couple of superficial abrasions and some reddened areas to the anterior right knee, one to the lower lateral patellar area and one to the upper medial patellar area. There is some tenderness with palpation over this area. Mild soft tissue swelling, a little bit more so to the proximal and medial patella and peripatellar area. No bony crepitus. There is no appreciable joint effusion. Normal range of motion though with pain. Normal neurovascular exam. No popliteal pain. No pain over the thigh or calf area. Good peripheral pulses. Vital signs are all unremarkable as noted. DIAGNOSTIC DATA: Right knee x-ray did not show any bony injury. DIAGNOSIS: Right knee contusion. PLAN/DISPOSITION: Ibuprofen, ice as needed, activity as tolerated. He is to follow up with Workman's Compensation doctor in 2-3 days if not improving. Dictated By: Moshe Gerardo MD 07/05/17 11:29 Page 1 of 2 [facility] Emergency Room Report JOB #: [id number] Transcribed By: filiberto 07/05/17 19:29 Electronically signed by: JACQUIE Gerardo M.D. 07/17/17 07:48 Page 2 of 2 [facility] Emergency Room Report Normal [facility] KNEE COMPLETE RT MIN 4 VIEWS on 07-05-2017 [place] [address] Patient: CRISTÓBAL SKINNER. Phone#: : 1990 Age: 26 Gender: M Pt. Type: ER Account: [id number] Location: Ordering: MOSHE GERARDO Exam Date: 07/05/2017/10:53 Family Phys: Charge Code: [id number] Physician: [place] Order #: [id number] DLP Dose#: PROCEDURE: X-RAY KNEE RT COMPLETE 4 VIEWS COMPARISON: None. INDICATIONS: Pain FINDINGS: BONES: Normal. No significant arthropathy or acute abnormality. SOFT TISSUES: Soft tissue swelling of the medial knee. EFFUSION: None visible. OTHER: Negative. CONCLUSION: 1. No acute osseous abnormality. Dictated by: Radha Negrete MD on 07/05/2017 at 11:21 Approved by: Radha Negrete MD on 07/05/2017 at 11:21 Normal [facility] Encounters Encounter Date Encounter Type Care Provider Facility Start: 12-05-2024 End: 12-05-2024 ambulatory No Primary Care Physician Facility:[facility] Start: 12-03-2024 Registered [facility] Work Phone: Start: 12-03-2024 ambulatory Health Risk Assessment Facility:[facility] Start: 12-03-2024 End: 12-03-2024 Patient encounter procedure Andrzej Graves [facility] Work Phone: Start: 12-03-2024 End: 12-03-2024 ambulatory No Primary Care Physician Facility:[facility] Start: 04-15-2024 End: 04-15-2024 ambulatory No Primary Care Physician Facility:[facility] Start: 07-05-2017 End: 07-05-2017 Emergency department patient visit MOSHE Easley GERARDO [facility] Procedures Date Procedure Procedure Detail Performing Clinician Start: 12-03-2024 Measurement of occul t blood in stool specimen using immunoassay No Primary Care Physician Start: 12-03-2024 Urnls dip stick/tabl et reagent auto microscopy No Primary Care Physician Start: 12-03-2024 Prostate specific an tigen measurement No Primary Care Physician Comment on above: This test was perfor med using the [employer] tPSA method. Measured values of a patient sample can vary depending on the testing procedure used. PSA values determined on patient samples by different testing procedures cannot be used interchangeably. If there is a change in PSA assays while monitoring therapy, sequential testing should be performed to confirm baseline values. Plan of Treatment Date Care Activity Detail Author Start: 12-05-2024 End: 12-05-2024 Patient encounter procedure Departed Physician/Provider Office Visit [facility] Work Phone: Immunizations Immunization Date Immunization Notes Care Provider Felisha fontana 01-26-2015 influenza, injectabl e, quadrivalent, preservative free No Primary Care Physician [facility] 06-19-2014 tetanus toxoid, redu janessa diphtheria toxoid, and acellular pertussis vaccine, adsorbed No Primary Care Physician [facility] Payers Date Payer Category Payer Self-pay Unknown [id number] Unknown [id number] Unknown [id number] Unknown [id number] Unknown [id number] [id number] Unknown [id number] Worker's Compensation [id number] Social History Date Type Detail Facility Start: 12-11-2019 [facility] Sex Male [facility] Start: 1990 Sex Assigned At Male [facility] Progress note 04-06-2023 Note Date & Type Note Facility 04-06-2023 Progress note [facility] Progress note 12-09-2020 Note Date & Type Note Facility 12-09-2020 Note HNO ID: [id number] Author: Elli Krishnan Population Health Navigator Service: ? Author Type: ? Type: Progress Notes Filed: 12/09/2020 1:13 PM Note Text: POPULATION HEALTH NAVIGATION OUTREACH Action/FYI I tried to leave a voice message mail box was full sent a my chart message re: pcp No care everywhere Contact made with patient or family member? NO Pt identified by name and : NO Outreach Outcome/Action Unable to reach patient: Left message [employer] message sent Reason for Outreach Attribution: Provider Off-boarding Payer: Payor: AETNA / Plan: AET[employer] CHOICE POS II / Product Type: POS / Care Gap Reviewed:: Reminder: Reminder note to check Health Maintenance for items below Health Maintenance items due: COVID-19 VACCINE(1) Never done HEPATITIS C SCREENING Never done HIV SCREENING Never done INFLUENZA(1) due on 10/14/2020 Advanced Directives Completed: Have you ever planned for future healthcare decisions with a power of cutter grinder, living will, or advance directives? No. Please bring a copy to your next appointment or email to Referrals: N/A Message Sent to Practice: NO Navigation Signature: Elli Krishnan Population Health Navigator December 09, 2020 1:12 PM [facility] Clinical Note 12-09-2020 Note Date & Type Note Facility 12-09-2020 Note Patient Outreach (NE FREDERICAV) CRISTÓBAL SKINNER ([id number]) 1990 M Date Time Provider Department 12/09/20 ELLI KRISHNAN During your visit today, we recorded the following information about you: Elli Krishnan Population Health Navigator 12/09/2020 1:13 PM Signed POPULATION HEALTH NAVIGATION OUTREACH Action/ I tried to leave a voice message mail box was full sent a my chart message re: pcp No care everywhere Contact made with patient or family member? NO Pt identified by name and : NO Outreach Outcome/Action Unable to reach patient: Left message [employer] message sent Reason for Outreach Attribution: Provider Off-boarding Payer: Payor: AETNA / Plan: AETNA CHOICE POS II / Product Type: POS / Care Gap Reviewed:: Reminder: Reminder note to check Health Maintenance for items below Health Maintenance items due: COVID-19 VACCINE(1) Never done HEPATITIS C SCREENING Never done HIV SCREENING Never done INFLUENZA(1) due on 10/14/2020 Advanced Directives Completed: Have you ever planned for future healthcare decisions with a power of cutter grinder, living will, or advance directives? No. Please bring a copy to your next appointment or email to [email or web address] Referrals: N/A Message Sent to Practice: NO Navigation Signature: Elli Krishnan Population Health Navigator December 09, 2020 1:12 PM Allergies As of Date: 12/09/2020 (No Known Allergies) Date Reviewed: 05/18/2020 Reviewed by: Lian Castillo LPN - Fully Assessed Reason for Visit: Population Health Navigation Outreach [7750] Cmt: Offboarding Prescriptions as of 12/09/2020 - polyethylene glycol 3350 (MIRALAX) 17 gram/dose powder Take 1 cap full twice daily - omeprazole (PRILOSEC ORAL) Take by mouth as needed. Meds Comments as of 04/17/2020: Laxatives, prilosec and stool softeners all OTC PRN April 17, 2020 Aspirin PRN Glendy Whitten MA Problem List As Of Date 12/09/2020 Noted Resolved PTSD (post-traumatic stress disorder) [F43.10] 08/24/2017 Encounter Status:Closed by [facility] NAVIGATOR, ELLI Conner on 12/09/20 [facility] Progress note 04-17-2020 Note Date & Type Note Facility 04-17-2020 Note HNO ID: [id number] Author: Aly Lee III Service: ? Author Type: Physician Type: Progress Notes Filed: 04/17/2020 1:00 PM Note Text: SUBJECTIVE: This is a 29 year old male that is here today for 1. wellness exam 2. constipation for few mos.since Oct. Has been requiring increasing doses and frequency of laxatives. Wt lifting and cardio for > 3 d/wk. Normal appetite. Using metamucil daily. Stool q3 days, hard . 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 MGF of colon ca age 74. PAST MEDICAL HISTORY Diagnosis Date - Anger - GERD (gastroesophageal reflux disease) Current Outpatient Medications on File Prior to Visit Medication Sig - FLUoxetine (PROZAC) 20 mg capsule Take 1 capsule by mouth once daily. - omeprazole (PRILOSEC ORAL) Take by mouth as needed. No current facility-administered medications on file prior to visit. FAMILY HISTORY Problem Relation Age of Onset - None Mother - None Father - other (myocardial infarction [Other]) Maternal Uncle 33 of [place] Social History Tobacco Use - Smoking status: Never Smoker - Smokeless tobacco: Never Used Substance Use Topics - Alcohol use: Yes Comment: 0-2 drinks per week - Drug use: No ventricular septal defect . OBJECTIVE: APPEARANCE Well appearing, alert, in no acute distress, well-hydrated, well nourished. NECK Supple, no adenopathy; thyroid symmetric, normal size, no bruits HEART RRR with normal S1 and S2, no murmurs, no gallops, no JVD appreciated LUNG clear to auscultation ABDOMEN bowel sounds normoactive, no bruits, soft, non-tender, non-distended, without organomegaly or palpable masses, no tenderness to palpation BACK: no pain to palpation EXTREMITIES Extremities normal, No deformities, No skin discoloration, No edema and Normal pulses bilaterally. NEURO Awake, alert and oriented x 3, Normal gait, No involuntary motions. and Appearance: well dressed well groomed, cooperative and pleasant Behavior: good eye contact Speech: fluent and coherent Mood: euthymic Affect: appropriate Perceptions: none Thought process: goal directed Thought Content: normal Intelligence level: normal Insight: good Judgment: good Lab Results for CRIST[facility]BAL SKINNER ( ) as of 04/17/2020 09:59 Ref. Range 12/11/2019 00:00 NA Latest Ref Range: 136 - 145 mmol/L 139 K Latest Ref Range: 3.5 - 5.1 mmol/L 4.1 Chloride Latest Ref Range: 98 - 107 MEQ/L 104 CO2 Latest Ref Range: 21 - 32 MEQ/L 30.0 BUN Latest Ref Range: 7 - 18 MG/DL 13 Creatinine Latest Ref Range: 0.6 - 1.3 MG/DL 1.00 Glucose Latest Ref Range: 74 - 106 MG/DL 87 Albumin Latest Ref Range: 3.2 - 4.6 gm/dL 4.5 AST Latest Ref Range: 8 - 37 U/L 17 Triglyceride Latest Ref Range: 149 mg/dL 41 PSA. Unknown 1.18 WBC Latest Ref Range: 3.9 - 11 K/uL 5.4 RBC Latest Ref Range: 4 - 6 M/uL 4.39 HGB Latest Ref Range: 14 - 16.5 g/dL 13.0 (A) MCV Latest Ref Range: 79 - 98 fL 89.7 MCH Latest Ref Range: 25.4 - 34.6 pg 29.6 MCHC Latest Ref Range: 30 - 36 g/dL 33.0 MPV Latest Ref Range: 7.4 - 10.4 fL 11.1 (A) HCT Latest Ref Range: 39 - 55 % 39.4 Platelet Latest Ref Range: 140 - 440 K/uL 295 Blood Type Recheck 2 Unknown A POS Alk Phos Total Latest Ref Range: 45 - 117 U/L 74 ALT (SGPT) Latest Ref Range: 12 - 78 U/L 25 BASO % Latest Ref Range: 0 - 1.5 % 1.1 Bili Total Latest Ref Range: 0.2 - 1 mg/dL 0.50 Calcium Latest Ref Range: 8.5 - 10.1 mg/dL 8.9 Cholesterol, Total Latest Ref Range: 0 - 200 MG/DL 144 EOS % Latest Ref Range: 1 - 3 % 3.7 (A) GFR Latest Units: mL/MIN 94 GFR AFR AMER Latest Units: mL/MIN 114 HDC-L Latest Ref Range: 41 mg/dL 55 (A) LDL Chol, calculated Latest Ref Range: 130 MG/DL 81 LYMPH % Latest Ref Range: 20 - 30 % 28.8 LYMPH ABS Latest Ref Range: 1.2 - 4 K/uL 1.56 MONO % Latest Ref Range: 2 - 8 % 9.0 (A) NEUT % Latest Ref Range: 40 - 74 % 57.2 NEUT ABS Latest Ref Range: 1.9 - 8 K/uL 3.1 Total Protein Latest Ref Range: 6.4 - 8.2 gm/dL 8.1 ASSESSMENT: recent onset constipation --?IBS with constipation? FHx of colon cancer PLAN: T4, TSH GI referral-consider colonoscopy healthy high fiber diet and stay well hydrated wellness form completed daily metamucil--may use miralax as needed Aly Lee III MD Medical Decision Making: Problems: Moderate: New problem with uncertain prognosis Data: Unique test result(s) reviewed: 3+ Unique test(s) ordered: 2 Risk: Moderate: Drug management Medical Decision Making Level: 4 - Moderate Aly Lee III MD [facility] Evaluation note Note Date & Type Note Facility Evaluation note No assessment information availa ble [facility] Work Phone: Progress note Note Date & Type Note Facility Progress note Note Date/Time December 09, 2024 7:50am [facility] [address] [address] OFFICE VISIT Date of Service: 12/03/24 MR#: [id number] Acct: [id number] Patient: CRISTÓBAL SKINNER Rep #: [id number] : 1990 Provider: LILY Pérez Age/Sex: 34/M Location: [facility].NOW Status: Signed Intake Vital Signs 04/06/23 08:20 Height 5 ft 10 in Intake Visit Reasons: FF PHYSICAL/TITO Allergies No Known Allergies Allergy (Verified 10/19/16 16:57) Office Procedures [facility] Billing Sheet Testing TB Test: Yes Employer Workplace Physicals EKG: Yes OSHA Respiratory Questionnaire: Yes Spirometry (PFT): Yes PPD Procedure TB Med Used: Tuberculin PPD 5 tub. unit/0.1 mL intradermal injection solution was administered Lot number: [id number] Technical Service Engineer: SANOFI date: 03/16/27 PPD Location: Right forearm Date PPD Placed: 12/03/24 Time PPD Placed: 09:20 PPD Placed By: Jolie Erickson Assessment and Plan Assessment and Plan Orders: Orders POC TB PPD SKIN Test (Clinic) 12/05/24 Z02.89 - Encounter for other administrative examinations 12/09/24 0650 <Electronically signed by Andrzej BAUTISTA> Date _ Andrzej BAUTISTA Cosigner Signature: Date (if applicable) CC: ~ [facility] Work Phone: Reason for referral (narrative) Note Date & Type Note Facility Reason for referral (narrative) No reason for referral information available [facility] Work Phone: Summary Purpose Family History No Family History Records FoundNo Family History Records FoundNo Family History Records FoundNo Family History Records Found Advance Directives No Advanced Directives Records FoundNo Advanced Directives Records FoundNo Advanced Directives Records FoundNo Advanced Directives Records Found Chief Complaint and Reason for Visit Chief Complaint Admit Date FF PHYSICAL/TITO December 03, 2024 7 :36am TITO FIRE HW December 03, 2024 1 0:45am TB READ/WFD December 05, 2024 1 2:19pm Additional Source Comments (unrecognized sect ion and content) No Status Records FoundNo Status Records FoundNo Status Records FoundNo Status Records Found INFORMATION SOURCE (unrecogn ized section and content) DATE CREATED AUTHOR 08/01/2017 Yuri Tai [facility] DATE CREATED AUTHOR AUTHOR'S ORGANIZ ATION 01/07/2019 [facility] ([place]) DATE CREATED AUTHOR AUTHOR'S ORGANIZ ATION 03/20/2021 [facility] DATE CREATED AUTHOR AUTHOR'S ORGANIZ ATION 12/09/2024 [facility] Care Teams (unrecognized sec tion and content) Team Status: Active Member Role/Relationship Status Dates No Primary Care Physician Primary care physician Activ e Team Status: Inactive Member Role/Relationship Status Dates No Primary Care Physician Primary care physician Activ e Start: December 03, 2024 End: December 03, 2024 No Primary Care Physician Referring Provider Active Start: December 03, 2024 End: December 03, 2024 Andrzej BAUTISTA PA Attending physician Active Start: December 03, 2024 End: December 03, 2024 Team Status: Active Member Role/Relationship Status Dates No Primary Care Physician Primary care physician Activ e Start: December 03, 2024 Health Risk Assessment Attending physician Active Start: December 03, 2024 Team Status: Inactive Member Role/Relationship Status Dates No Primary Care Physician Primary care physician Activ e Start: December 05, 2024 End: December 05, 2024 No Primary Care Physician Referring Provider Active Start: December 05, 2024 End: December 05, 2024 Chase BAUTISTA PA Attending physician Active St art: December 05, 2024 End: December 05, 2024 Goals (unrecognized section and content) Goals may be documented in a n alternate section FOR RECORDS PERTAINING TO PATIENTS WHO ARE OR HAVE BEEN ENROLLED IN A CHEMICAL DEPENDENCY/SUBSTANCEABUSE PROGRAM, SOME INFORMATION MAY BE OMITTED. This clinical summary was aggregated from multiple sources. Caution should be exercised in using it in the provision of clinical care. This summary normalizes information from multiple sources, and as a consequence, information in this document may materially change the coding, format and clinical context of patient data. In addition, data may be omitted in some cases. CLINICAL DECISIONS SHOULD BE BASED ON THE PRIMARY CLINICAL RECORDS. [employer] [facility]. provides no warranty or guarantee of the accuracy or completeness of information in this document.
--- NOTE | 2025-01-06 21:13 | EX.ED.VIS.EY ---
HPI History of Present Illness Chief Complaint: Occup Expose [facility] Medical History no medical history Home Medications ?Medication ?Instructions ?Recorded ?Last Taken ?Type No Known/Unobtainable [No Known 10/19/16 Unknown History Home Medications] Adacel(Tdap Adolesn/Adult)(PF) 2 0.5 ml IM ONCE #0.5 mL 11/29/21 Unknown Clinic Lf-(2.5-5-3-5)-5 Lf/0.5 mL IM syringe (diph,pertuss(acel),tet vac(PF)) Allergy/AdvReac Type Severity Reaction Status Date / Time No Known Allergies Allergy Verified 01/06/25 20:26 Surgical History no surgical history Social History (Updated 04/27/20 @ 08:41 by Andrzej BAUTISTA, PA) Smoking Status: Never smoker EXAM Physical Exam Const Vital Signs: 01/06/25 20:24 01/06/25 20:44 Temperature 98.2 F Temperature Source Oral Pulse Rate 77 Respiratory Rate 15 Respiratory Effort Normal Respiratory Pattern Normal Blood Pressure 151/81 H Blood Pressure Mean 104 Pulse Ox 98 Oxygen Delivery Method Room Air Discharge Plan Triage Chief Complaint: Occup Expose ED Provider: Elmo Pineda Dx/Rx/DC Orders Clinical Impression: Exposure to blood or body fluid Instructions: BBP Accidents Prescriptions: No Action Adacel(Tdap Adolesn/Adult)(PF) 2 Lf-(2.5-5-3-5 mcg)-5Lf/0.5 mL syringe 0.5 ml IM ONCE Qty: 0.5 0RF No Known Home Medications Primary Care Provider: Care Physician,No Primary Referrals: Corporate,Care [Group of Physicians, Medical] - 3-5 Days Care Physician,No Primary [Primary Care Provider, Medical] Print Language: Nicaraguan Disposition Disposition: Home, Self Care
[2025-01-06 21:25] VITALS: BP 151/81; PULSE 77; RESP 15; TEMP 36.8; O2SAT 98
--- NOTE | 2025-01-06 21:39 | CM.ED ---
Social work Reason for referral: no PCP Referral source: case find SW entered patient's room, introducing self and role at [facility]. Patient confirmed lacking a PCP, but denied needing resources at this time. Patient denied needing any resources at this time. Kendra Rodas, UPHOLSTERY DEPARTMENT SUPERVISOR, FOCUSING MACHINE OPERATOR
[2025-01-06 21:53] LABS: HIV Nonreactive (Nonreactive); Hepatitis B Surface Antigen Nonreactive (Nonreactive); Hepatitis C Antibody Nonreactive (Nonreactive)
--- OUTSIDE RECORDS SUMMARY | 2025-01-06 22:05 | XMS RPT_ITS | CCD ---
Author Organization [facility] Inform ion Partnership 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 Role Phone GERARDO, MOSHE C Unavailable [...] Office Visit Reporton 2024 Office Visit Report [facility] [address] [place] [address] OFFICE VISIT Date of Service: 12/03/24 MR#: [id number] Acct: [id number] Patient: CRISTÓBAL SKINNER Rep #: [id number] : 1990 Provider: LILY Pérez Age/Sex: 34/M [place] [facility] [place] Status: Signed Intake Vital Signs 04/06/23 08:20 [...] intradermal injection solution was administered Lot number: [id number] Whipper Beater: SANOFI date: 03/16/27 PPD Location: Right forearm Date PPD Placed: 12/03/24 Time PPD Placed: 09:20 PPD Placed By: Jolie Erickson Assessment and Plan Assessment and Plan Orders: Orders POC TB PPD SKIN Test (Clinic) 12/05/24 Z02.89 - Encounter for other administrative examinations 12/09/24 0650 Date Andrzej BAUTISTA Cosigner Signature: Date (if applicable) CC: Normal [facility] Absolute lymphocyte countOrd ered By: HEALTH ASSESSMENT on 12-03-2024 Lymphocytes Auto (Unsp spec) [#/Vol] 2.12 10*3/uL 0.83-4.51 [facility] Absolute neutrophil countOrd ered By: HEALTH ASSESSMENT on 12-03-2024 Neutrophils (Bld) [#/Vol] 2.5 10*3/uL 2.0-7.7 [facility] Anion gap in Serum or Plasma Ordered By: HEALTH ASSESSMENT on 12-03-2024 Anion gap [Moles/Vol] 11 mmol/L 5-15 [facility] Automated lymphocyte count a s percentage of total leukocytesOrdered By: HEALTH ASSESSMENT on 12-03-2024 Lymphocytes/100 WBC Auto (Unsp spec) 37.9 % [facility] BUN/creatinine ratioOrdered By: HEALTH ASSESSMENT on 12-03-2024 Urea nitrogen/Creatinine [Mass ratio] 14.9 mg/mg 12-02 [facility] Basophil percentageOrdered B y: HEALTH ASSESSMENT on 12-03-2024 Basophils/100 WBC (Bld) 1.4 % High 0-1 [facility] Bilirubin Test strip Ql (U)O rdered By: HEALTH ASSESSMENT on 12-03-2024 Bilirubin Ql (U) Negative Negative [facility] Bilirubin, totalOrdered By: HEALTH ASSESSMENT on 12-03-2024 Bilirubin [Mass/Vol] 0.56 mg/dL 0.00-1.30 [facility] CBC W/Diff, Automatedon 11-14 Absolute Lymph 2.12 X10 3/uL Normal 0.83-4.51 [facility] Comment on above: Performed By: #### L 501.9910, L500.4050, L100.0100, L400.2010, L500.4100, M100.7900 #### [facility] [address] [place], [address] Absolute Neut 2.5 X10 3/uL Normal 2.0-7.7 [facility] Comment on above: Performed By: #### L 501.9910, L500.4050, L100.0100, L400.2010, L500.4100, M100.7900 #### [facility] [address] [place], [address] Basophils/100 WBC (Bld) 1.4 % High 0-1 [facility] Comment on above: Performed By: #### L 501.9910, L500.4050, L100.0100, L400.2010, L500.4100, M100.7900 #### [facility] [address] [place], [address] Eosinophils/100 WBC (Bld) 5.9 % High 0-5 [facility] Comment on above: Performed By: #### L 501.9910, L500.4050, L100.0100, L400.2010, L500.4100, M100.7900 #### [facility] [address] [place], [address] Erythrocyte distribution width (RBC) [Ratio] 12.5 % Normal 11.6-14.6 [facility] Comment on above: Performed By: #### L 501.9910, L500.4050, L100.0100, L400.2010, L500.4100, M100.7900 #### [facility] [address] [place], [address] Hematocrit (Bld) [Volume fraction] 39.4 % Low 40-54 [facility] Comment on above: Performed By: #### L 501.9910, L500.4050, L100.0100, L400.2010, L500.4100, M100.7900 #### [facility] [address] [place], [address] Hemoglobin (Bld) [Mass/Vol] 13.2 g/dL Normal 13.0-16.5 [facility] Comment on above: Performed By: #### L 501.9910, L500.4050, L100.0100, L400.2010, L500.4100, M100.7900 #### [facility] [address] [place], [address] IG% 0.400 Normal 0.0-0.9 [facility] Comment on above: Result Comment: IG% - Immature Granulocytes (promyelocytes, myelocytes and metamyelocytes) > 1% indicates that a LEFT SHIFT is Present. Performed By: #### L 501.9910, L500.4050, L100.0100, L400.2011, L500.4100, M100.7900 #### [facility] [address] [place], [address] Lymphocytes/100 WBC (Bld) 37.9 % Normal 19-41 [facility] Comment on above: Performed By: #### L 501.9910, L500.4050, L100.0100, L400.2010, L500.4100, M100.7900 #### [facility] [address] [place], [address] MCH (RBC) [Entitic mass] 29.3 pg Normal 27.0-32.0 [facility] Comment on above: Performed By: #### L 501.9910, L500.4050, L100.0100, L400.2010, L500.4100, M100.7900 #### [facility] [address] [place], [address] MCHC (RBC) [Mass/Vol] 33.5 g/dL Normal 32-36 [facility] Comment on above: Performed By: #### L 501.9910, L500.4050, L100.0100, L400.2010, L500.4100, M100.7900 #### [facility] [address] [place], [address] MCV (RBC) [Entitic vol] 87.4 fL Normal 80-94 [facility] Comment on above: Performed By: #### L 501.9910, L500.4050, L100.0100, L400.2010, L500.4100, M100.7900 #### [facility] [address] [place], [address] Monocytes/100 WBC (Bld) 9.1 % Normal 0-10 [facility] Comment on above: Performed By: #### L 501.9910, L500.4050, L100.0100, L400.2010, L500.4100, M100.7900 #### [facility] [address] [place], [address] Neutrophils/100 WBC (Bld) 45.3 % Low 47-70 [facility] Comment on above: Performed By: #### L 501.9910, L500.4050, L100.0100, L400.2010, L500.4100, M100.7900 #### [facility] [address] [place], [address] Nucleated RBC (Bld) [#/Vol] 0 10*3/uL Normal 0-5 [facility] Comment on above: Performed By: #### L 501.9910, L500.4050, L100.0100, L400.2010, L500.4100, M100.7900 #### [facility] [address] [place], [address] Platelet mean volume (Bld) [Entitic vol] 11.1 fL Normal 6.2-12.0 [facility] Comment on above: Performed By: #### L 501.9910, L500.4050, L100.0100, L400.2010, L500.4100, M100.7900 #### [facility] [address] [place], [address] Platelets (Bld) [#/Vol] 286 10*3/uL Normal 150-450 [facility] Comment on above: Performed By: #### L 501.9910, L500.4050, L100.0100, L400.2010, L500.4100, M100.7900 #### [facility] [address] [place], [address] RBC (Bld) [#/Vol] 4.51 10*6/uL Low 4.6-6.2 [facility] Comment on above: Performed By: #### L 501.9910, L500.4050, L100.0100, L400.2010, L500.4100, M100.7900 #### [facility] [address] [place], [address] RDW SD 40.1 fl Normal 35.1-43.9 [facility] Comment on above: Performed By: #### L 501.9910, L500.4050, L100.0100, L400.2010, L500.4100, M100.7900 #### [facility] [address] [place], [address] WBC (Bld) [#/Vol] 5.6 10*3/uL Normal 4.4-11.0 [facility] Comment on above: Performed By: #### L 501.9910, L500.4050, L100.0100, L400.2010, L500.4100, M100.7900 #### [facility] [address] [place], [place], [id number] Calculated very low density lipoprotein (VLDL) cholesterol measurementOrdered By: HEALTH ASSESSMENT on 12-03-2024 Calculated very low density lipoprotein (VLDL) cholesterol measurement 14 mg/dL 5-40 [facility] Carbon dioxide, total [Moles /volume] in Central venous bloodOrdered By: HEALTH ASSESSMENT on 12-03-2024 CO2 [Moles/Vol] 26.0 mmol/L 21.0-32.0 [facility] Chloride assayOrdered By: HE ALTH ASSESSMENT on 12-03-2024 Chloride [Moles/Vol] 100 mmol/L 98-108 [facility] Comprehensive Metabolic Prof ilon 12-03-2024 Albumin [Mass/Vol] 4.8 g/dL Normal 3.5-5.0 [facility] Comment on above: Performed By: #### L 501.9910, L500.4050, L100.0100, L400.2010, L500.4100, M100.7900 #### [facility] [address] [place], [place], [id number] Albumin/Globulin [Mass ratio] 1.7 {ratio} Normal 0.9-2.4 [facility] Comment on above: Performed By: #### L 501.9910, L500.4050, L100.0100, L400.2010, L500.4100, M100.7900 #### [facility] [address] [place], [address] ALK PHOS 79 U/L Normal 40-129 [facility] Comment on above: Performed By: #### L 501.9910, L500.4050, L100.0100, L400.2011, L500.4100, M100.7900 #### [facility] [address] [place], [address] ALT [Catalytic activity/Vol] 21 U/L Normal <=46 [facility] Comment on above: Performed By: #### L 501.9910, L500.4050, L100.0100, L400.2010, L500.4100, M100.7900 #### [facility] [address] [place], [address] AST [Catalytic activity/Vol] 24 U/L Normal <=37 [facility] Comment on above: Performed By: #### L 501.9910, L500.4050, L100.0100, L400.2010, L500.4100, M100.7900 #### [facility] [address] [place], [address] Bilirubin [Mass/Vol] 0.56 mg/dL Normal 0.00-1.30 [facility] Comment on above: Performed By: #### L 501.9910, L500.4050, L100.0100, L400.2010, L500.4100, M100.7900 #### [facility] [address] [place], [address] BUN/CRE 14.9 RATIO Normal 10-20 [facility] Comment on above: Performed By: #### L 501.9910, L500.4050, L100.0100, L400.2010, L500.4100, M100.7900 #### [facility] [address] [place], [address] Calcium [Mass/Vol] 9.7 mg/dL Normal 7.6-11.0 [facility] Comment on above: Performed By: #### L 501.9910, L500.4050, L100.0100, L400.2011, L500.4100, M100.7900 #### [facility] [address] [place], [address] Chloride [Moles/Vol] 100 mmol/L Normal 98-108 [facility] Comment on above: Performed By: #### L 501.9910, L500.4050, L100.0100, L400.2010, L500.4100, M100.7900 #### [facility] [address] [place], [address] CO2 [Moles/Vol] 26.0 mmol/L Normal 21.0-32.0 [facility] Comment on above: Performed By: #### L 501.9910, L500.4050, L100.0100, L400.2010, L500.4100, M100.7900 #### [facility] [address] [place], [address] Creatinine [Mass/Vol] 1.01 mg/dL Normal 0.70-1.20 [facility] Comment on above: Performed By: #### L 501.9910, L500.4050, L100.0100, L400.2010, L500.4100, M100.7900 #### [facility] [address] [place], [address] GAP 11 Normal 5-15 [facility] Comment on above: Performed By: #### L 501.9910, L500.4050, L100.0100, L400.2010, L500.4100, M100.7900 #### [facility] [address] [place], [address] GFR/1.73 sq M.predicted among non-blacks MDRD (S/P/Bld) [Vol rate/Area] 101 mL/min/{1.73_m2} Normal >60 [facility] Comment on above: Result Comment: mL/m in/1.73m2 CKD-EPI Creatinine Equation (2020) Performed By: #### L 501.9910, L500.4050, L100.0100, L400.2010, L500.4100, M100.7900 #### [facility] [address] [place], [address] Globulin (S) [Mass/Vol] 2.8 g/dL Normal 2.2-4.2 [facility] Comment on above: Performed By: #### L 501.9910, L500.4050, L100.0100, L400.2010, L500.4100, M100.7900 #### [facility] [address] [place], [address] Glucose [Mass/Vol] 96 mg/dL Normal 70-99 [facility] Comment on above: Performed By: #### L 501.9910, L500.4050, L100.0100, L400.2010, L500.4100, M100.7900 #### [facility] [address] [place], [address] Potassium [Moles/Vol] 4.0 mmol/L Normal 3.3-5.1 [facility] Comment on above: Performed By: #### L 501.9910, L500.4050, L100.0100, L400.2010, L500.4100, M100.7900 #### [facility] [address] [place], [address] Sodium [Moles/Vol] 137 mmol/L Normal 133-145 [facility] Comment on above: Performed By: #### L 501.9910, L500.4050, L100.0100, L400.2010, L500.4100, M100.7900 #### [facility] [address] [place], [address] T PROT 7.6 g/dL Normal 5.9-8.4 [facility] Comment on above: Performed By: #### L 501.9910, L500.4050, L100.0100, L400.2011, L500.4100, M100.7900 #### [facility] [address] [place], [address] Urea nitrogen [Mass/Vol] 15 mg/dL Normal 4-19 [facility] Comment on above: Performed By: #### L 501.9910, L500.4050, L100.0100, L400.2011, L500.4100, M100.7900 #### [facility] [address] [place], [address] Eosinophil percentageOrdered By: HEALTH ASSESSMENT on 12-03-2024 Eosinophils/100 WBC (Bld) 5.9 % High 0-5 [facility] Erythrocyte distribution wid th ratioOrdered By: HEALTH ASSESSMENT on 12-03-2024 Erythrocyte distribution width (RBC) [Ratio] 12.5 % 11.6-14.6 [facility] Erythrocyte distribution wid th standard deviationOrdered By: HEALTH ASSESSMENT on 12-03-2024 Erythrocyte distribution width (RBC) [Ratio] 40.1 fl 35.1-43.9 [facility] Glomerular filtration rate ( GFR) estimation/1.73 sq m using serum, plasma, or whole bOrdered By: HEALTH ASSESSMENT on 12-03-2024 GFR/1.73 sq M.predicted among non-blacks MDRD (S/P/Bld) [Vol rate/Area] 101 mL/min/{1.73_m2} >60 [facility] Comment on above: mL/min/1.73m2 CKD-EP I Creatinine Equation (2020) Hematocrit Auto (Bld) [Volum e fraction]Ordered By: HEALTH ASSESSMENT on 12-03-2024 Hematocrit (Bld) [Volume fraction] 39.4 % Low 40-54 [facility] Hemoglobin measurementOrdere d By: HEALTH ASSESSMENT on 12-03-2024 Hemoglobin (Bld) [Mass/Vol] 13.2 g/dL 13.0-16.5 [facility] Immature granulocytes/100 WB C Auto (Bld)Ordered By: HEALTH ASSESSMENT on 12-03-2024 Immature granulocytes/100 WBC (Bld) 0.400 % 0.0-0.9 [facility] Comment on above: IG% - Immature Granu locytes (promyelocytes, myelocytes and metamyelocytes) > 1% indicates that a LEFT SHIFT is Present. Ketones Test strip Ql (U)Ord ered By: HEALTH ASSESSMENT on 12-03-2024 Ketones Ql (U) Negative Negative [facility] LDL calc ser/plasOrdered By: HEALTH ASSESSMENT on 12-03-2024 Cholesterol in LDL [Mass/Vol] 115 mg/dL [facility] Comment on above: Ovrfybyyeu=970-623 m g/dL & Higher Aiep=422 mg/dL or greaterSampson Equation 2020 for LDL-C Laboratory - Chemistry and C hemistry - challengeOrdered By: HEALTH ASSESSMENT on 12-03-2024 AST [Catalytic activity/Vol] 24 U/L <38 [facility] Lipid Profileon 12-03-2024 CHOL:HDL 3.[address] [facility] Comment on above: Performed By: #### L 501.9910, L500.4050, L100.0100, L400.2010, L500.4100, M100.7900 #### [facility] [address] [place], [place], [id number] (081) Cholesterol [Mass/Vol] 173 mg/dL Normal <=200 [facility] Comment on above: Result Comment: Chol esterol level, Desirable <200 mg/dL Borderline high cholesterol 200-239 mg/dL High cholesterol >=240 mg/dL Recommendations of the NCEP Adult Treatment Panel for the following risk-cutoff thresholds for the [place] population. Performed By: #### L 501.9910, L500.4050, L100.0100, L400.2010, L500.4100, M100.7900 #### [facility] [address] [place], [address] Cholesterol in HDL [Mass/Vol] 45 mg/dL Normal [facility] Comment on above: Result Comment: [place] onal Cholesterol Education Program (NCEP) guidelines: <40 mg/dL: Low HDL-cholesterol (major risk factor for CHD) >= 60 mg/dL: High HDL-cholesterol (negative risk factor for CHD) HDL-cholesterol is affected by a number of factors, e.g. smoking, exercise, hormones, sex and age. Performed By: #### L 501.9910, L500.4050, L100.0100, L400, L500.4100, M100.7900 #### [facility] [address] [place], [address] Cholesterol in LDL [Mass/Vol] 115 mg/dL Normal [facility] Comment on above: Result Comment: Bord bekffo=320-002 mg/dL Higher Jviv=491 mg/dL or greater Kim Equation 2020 for LDL-C Performed By: #### L 501.9910, L500.4050, L100.0100, L400, L500.4100, M100.7900 #### [facility] [address] [place], [address] Cholesterol in VLDL [Mass/Vol] 14 mg/dL Normal 5-40 [facility] Comment on above: Performed By: #### L 501.9910, L500.4050, L100.0100, L400, L500.4100, M100.7900 #### [facility] [address] [place], [address] Triglyceride [Mass/Vol] 68 mg/dL Normal [facility] Comment on above: Result Comment: The drugs N-Acetylcysteine and Metamizole may falsely depress this assay. Normal range: <150 mg/dL Borderline High: 150-199 mg/dL High: 200-499 mg/dL Very High: >500 mg/dL Performed By: #### L 501.9910, L500.4050, L100.0100, L400.2010, L500.4100, M100.7900 #### [facility] [place], [address] MCV (mean corpuscular volume ) determinationOrdered By: HEALTH ASSESSMENT on 12-03-2024 MCV (RBC) [Entitic vol] 87.4 fL 80-94 [facility] Mean corpuscular hemoglobin (MCH) determinationOrdered By: HEALTH ASSESSMENT on 12-03-2024 MCH (RBC) [Entitic mass] 29.3 pg 27.0-32.0 [facility] Mean corpuscular hemoglobin concentration (MCHC) determinationOrdered By: HEALTH ASSESSMENT on 12-03-2024 MCHC (RBC) [Mass/Vol] 33.5 g/dL 32-36 [facility] Mean platelet volume determi nationOrdered By: HEALTH ASSESSMENT on 12-03-2024 Platelet mean volume (Bld) [Entitic vol] 11.1 fL 6.2-12.0 [facility] Monocyte percentageOrdered B y: HEALTH ASSESSMENT on 12-03-2024 Monocytes/100 WBC (Bld) 9.1 % 0-10 [facility] Neutrophil percentageOrdered By: HEALTH ASSESSMENT on 12-03-2024 Neutrophils/100 WBC (Bld) 45.3 % Low 47-70 [facility] No Panel InformationOrdered By: Andrzej Graves on 12-03-2024 Result Reviewed By LORENA BARNEY [facility] Tuberculin PPD Skin Test (Clinic) Negative [facility] Nucleated red blood cell per centageOrdered By: HEALTH ASSESSMENT on 12-03-2024 Nucleated RBC/100 WBC (Bld) [Ratio] 0 % 0-5 [facility] PSA,Total - Annual Screenon 12-03-2024 PSA,TOT SCREEN 1.19 ng/mL Normal 0.02-4.00 [facility] Comment on above: Result Comment: This [...] L500.4050, L100.0100, L400.2011, L500.4100, M100.7900 #### [facility] [place], [address] Platelet countOrdered By: HE ALTH ASSESSMENT on 12-03-2024 Platelets (Bld) [#/Vol] 286 10*3/uL 150-450 [facility] Potassium measurement (mass/ volume)Ordered By: HEALTH ASSESSMENT on 12-03-2024 Potassium (Unsp spec) [Mass/Vol] 4.0 mmol/L 3.3-5.1 [facility] Protein Test strip Ql (U)Ord ered By: HEALTH ASSESSMENT on 12-03-2024 Protein Ql (U) Negative Negative [facility] RBC Auto (Bld) [#/Vol]Ordere d By: HEALTH ASSESSMENT on 12-03-2024 RBC (Bld) [#/Vol] 4.51 10*6/uL Low 4.6-6.2 [facility] Screening total cholesterol/ high density lipoprotein (HDL) cholesterol ratioOrdered By: HEALTH ASSESSMENT on 12-03-2024 Cholesterol.total/Choles terol in HDL [Mass ratio] 3.83 {ratio} [facility] Serum creatinine measurement (mass/volume)Ordered By: HEALTH ASSESSMENT on 12-03-2024 Creatinine [Mass/Vol] 1.01 mg/dL 0.70-1.20 [facility] Serum globulin measurementOr dered By: HEALTH ASSESSMENT on 12-03-2024 Globulin (S) [Mass/Vol] 2.8 g/dL 2.2-4.2 [facility] Serum glucose measurement (m ass/volume)Ordered By: HEALTH ASSESSMENT on 12-03-2024 Glucose [Mass/Vol] 96 mg/dL 70-99 [facility] Serum or plasma alanine levy otransferase (ALT) measurementOrdered By: HEALTH ASSESSMENT on 12-03-2024 ALT [Catalytic activity/Vol] 21 U/L <47 [facility] Serum or plasma albumin avis urement (mass/volume)Ordered By: HEALTH ASSESSMENT on 12-03-2024 Albumin [Mass/Vol] 4.8 g/dL 3.5-5.0 [facility] Serum or plasma albumin/glob ulin mass ratioOrdered By: HEALTH ASSESSMENT on 12-03-2024 Albumin/Globulin [Mass ratio] 1.7 {ratio} 0.9-2.4 [facility] Serum or plasma alkaline daphne sphatase measurementOrdered By: HEALTH ASSESSMENT on 12-03-2024 ALP [Catalytic activity/Vol] 79 U/L 40-129 [facility] Serum or plasma calcium avis urement (mass/volume)Ordered By: HEALTH ASSESSMENT on 12-03-2024 Calcium [Mass/Vol] 9.7 mg/dL 7.6-11.0 [facility] Serum or plasma cholesterol in HDL measurement (mass/volume)Ordered By: HEALTH ASSESSMENT on 12-03-2024 Cholesterol in HDL [Mass/Vol] 45 mg/dL >40 [facility] Comment on above: National Cholesterol Education Program (NCEP) guidelines:<40 mg/dL: Low HDL-cholesterol (major risk factor for CHD)>= 60 mg/dL: High HDL-cholesterol (negative risk factor for CHD)HDL-cholesterol is affected by a number of factors, e.g. smoking, exercise, hormones, sex and age. Serum or plasma cholesterol measurement (mass/volume)Ordered By: HEALTH ASSESSMENT on 12-03-2024 Cholesterol [Mass/Vol] 173 mg/dL <201 [facility] Comment on above: Cholesterol level, D esirable <200 mg/dLBorderline high cholesterol 200-239 mg/dLHigh cholesterol >=240 mg/dLRecommendations of the NCEP Adult Treatment Panel for the following risk-cutoff thresholds for the [place] population. Serum or plasma urea nitroge n measurement (mass/volume)Ordered By: HEALTH ASSESSMENT on 12-03-2024 Urea nitrogen [Mass/Vol] 15 mg/dL 4-19 [facility] Sodium levelOrdered By: HEAL TH ASSESSMENT on 12-03-2024 Sodium [Moles/Vol] 137 mmol/L 133-145 [facility] Stool Occult Blood iFOBon STOB Negative Normal [facility] Comment on above: Performed By: #### L 501.9910, L500.4050, L100.0100, L400.2011, L500.4100, M100.7900 #### [facility] [address], [address] Stool gastrointestinal hemog lobin detection by immunologic methodOrdered By: HEALTH ASSESSMENT on 12-03-2024 Lower GI hemoglobin IA Ql (Stl) [facility] Total proteinOrdered By: HEA LTH ASSESSMENT on 12-03-2024 Protein [Mass/Vol] 7.6 g/dL 5.9-8.4 [facility] Triglycerides measurementOrd ered By: HEALTH ASSESSMENT on 12-03-2024 Triglyceride [Mass/Vol] 68 mg/dL <199 [facility] Comment on above: The drugs N-Acetylcy steine and Metamizole may falsely depress this assay. Normal range: <150 mg/dLBorderline High: 150-199 mg/dLHigh: 200-499 mg/dLVery High: >500 mg/dL Urinalysis, Routine (Dipstic k)on 12-03-2024 BILIRUBIN URINE Negative Normal Negative [facility] Comment on above: Order Comment: CLEAN CATCH Performed By: #### L 501.9910, L500.4050, L100.0100, L400.2010, L500.4100, M100.7900 #### [facility] [address] [place], [address] GLUCOSE, UR Normal Normal Normal [facility] Comment on above: Order Comment: CLEAN CATCH Performed By: #### L 501.9910, L500.4050, L100.0100, L400.2010, L500.4100, M100.7900 #### [facility] [address] [place], [address] KETONE UR Negative Normal Negative [facility] Comment on above: Order Comment: CLEAN CATCH Performed By: #### L 501.9910, L500.4050, L100.0100, L400.2010, L500.4100, M100.7900 #### [facility] [address] [place], [address] LEUK ESTERASE Negative Normal Negative [facility] Comment on above: Order Comment: CLEAN CATCH Performed By: #### L 501.9910, L500.4050, L100.0100, L400.2010, L500.4100, M100.7900 #### [facility] [address] [place], [address] OCCULT BLOOD-UR Negative Normal Negative [facility] Comment on above: Order Comment: CLEAN CATCH Performed By: #### L 501.9910, L500.4050, L100.0100, L400.2010, L500.4100, M100.7900 #### [facility] [facility] [address] [place], [address] pH UR 7.0 Normal 5.0 - 8.0 [facility] Comment on above: Order Comment: CLEAN CATCH Performed By: #### L 501.9910, L500.4050, L100.0100, L400.2010, L500.4100, M100.7900 #### [facility] [address] [place], [address] PROT DIPSTX Negative Normal Negative [facility] Comment on above: Order Comment: CLEAN CATCH Performed By: #### L 501.9910, L500.4050, L100.0100, L400.2010, L500.4100, M100.7900 #### [facility] [address] [place], [address] SP.GR. DIPSTX 1.005 Normal 1.002-1.030 [facility] Comment on above: Order Comment: CLEAN CATCH Performed By: #### L 501.9910, L500.4050, L100.0100, L400.2010, L500.4100, M100.7900 #### [facility] [address] [place], [address] UROBIL[address] Normal Normal Normal [facility] Comment on above: Order Comment: CLEAN CATCH Performed By: #### L 501.9910, L500.4050, L100.0100, L400.2010, L500.4100, M100.7900 #### [facility] [address] [place], [place], [id number] Urinalysis, Routine (Dipstic k)Ordered By: HEALTH ASSESSMENT on 12-03-2024 Clarity (U) Clear Normal Clear [facility] Comment on above: Order Comment: CLEAN CATCH Performed By: #### L 501.9910, L500.4050, L100.0100, L400.2011, L500.4100, M100.7900 #### [facility] [address] [place], [address] Color (U) Yellow Normal Yellow [facility] Comment on above: Order Comment: CLEAN CATCH Performed By: #### L 501.9910, L500.4050, L100.0100, L400.2011, L500.4100, M100.7900 #### [facility] [address] [place], [place], [id number] Nitrite Ql (U) Negative Normal Negative [facility] Comment on above: Order Comment: CLEAN CATCH Performed By: #### L 501.9910, L500.4050, L100.0100, L400.2010, L500.4100, M100.7900 #### [facility] [address] [place], [place], [id number] Urine glucose detectionOrder ed By: HEALTH ASSESSMENT on 12-03-2024 Glucose Ql (U) Normal mg/dl Normal [facility] Urine leukocyte esterase det ection by dipstickOrdered By: HEALTH ASSESSMENT on 12-03-2024 Leukocyte esterase Test strip Ql (U) Negative Negative [facility] Urine pHOrdered By: HEALTH A SSESSMENT on 12-03-2024 pH (U) 7.0 [pH] 5.0 - 8.0 [facility] Urine specific gravity measu rementOrdered By: HEALTH ASSESSMENT on 12-03-2024 Specific gravity (U) [Rel density] 1.005 1.002-1.030 [facility] Urine urobilinogen measureme ntOrdered By: HEALTH ASSESSMENT on 12-03-2024 Urobilinogen Ql (U) Normal mg/dl Normal [facility] White blood cell (WBC) count Ordered By: HEALTH ASSESSMENT on 12-03-2024 WBC (Bld) [#/Vol] 5.6 10*3/uL 4.4-11.0 [facility] Office Visit Reporton 2024 Office Visit Report [facility] [address] [place] [address] OFFICE VISIT Date of Service: 04/15/24 MR#: [id number] Acct: [id number] Patient: CRISTÓBAL SKINNER Rep #: [id number] : 1990 Provider: LILY Pérez Age/Sex: 33/M Location[place] [facility] Status: Signed Intake Vital Signs 04/06/23 08:20 Height 5 ft 10 in Intake Visit Reasons: AUDIOGRAM, TITMUS/ WFD Allergies No Known Allergies Allergy (Verified 10/19/16 16:57) Office Procedures [facility] Billing Sheet Testing Hearing (Audiogram) Test: Yes Titmus Screening: Yes Employer Workplace Physicals Physical Exam: Yes 04/29/24 0620 Date Andrzej BAUTISTA Cosigner Signature: Date (if applicable) CC: Normal [facility] Urgent Care Visit Reporton 0 04-15-2024 Urgent Care Visit Report [facility] [address], [address] [place] [address] OFFICE VISIT Date of Service: 04/15/24 MR#: [id number] Acct: [id number] Name: CRISTÓBAL SKINNER Rep #: [id number] : 1990 Provider: LILY Pérez Age/Sex: 33/M Location: [facility] Status: Signed Intake Vital Signs 04/06/23 08:20 Height 5 ft 10 in Intake Visit Reasons: FF PHYSICAL / WFD Allergies No Known Allergies Allergy (Verified 10/19/16 16:57) HPI HPI Details: CRISTÓBAL SKINNER, is a 33 M who presents to the office today for Office Procedures Physical Exam Coding PE Coding 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 Office Visit Reporton 2023 Office Visit Report [facility] [address] [place] [address] OFFICE VISIT Date of Service: 11/21/23 MR#: [id number] Acct: [id number] Patient: CRISTÓBAL SKINNER Rep #: [id number] : 1990 Provider: VIRGINIA Walker Age/Sex: 33/M Location: [facility] Status: Signed with Addenda ADDENDUM by CARMEN [...] Orders: Orders 12 Lead EKG performed by [facility] 11/21/23 Z02.89 - Encounter for other administrative examinations 12/26/23926 Date Shawnee Bryant FINANCE INSURANCE MANAGER-C Cosigner Signature: Date (if applicable) [facility] Office Visit (PETE) CRISTÓBAL SKINNER ([id number]) 1990 M Date Time Provider Department 05/18/20 10:00 AM RIA HAWTHORNE During your visit today, we recorded the following information about you: Pulse Blood pressure Weight Height 51/minute 112/76 84.8 kg 1.806 m Ria Hawthorne RN APRN.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 MGF [...] which included preparing to see the patient, [id number] patient care, completing clinical documentation, obtaining and/or reviewing separately obtained history, performing a medically appropriate examination and counseling and educating the patient/family/careg adonis. Tania Hernandez APRN.C (more content not included)... Normal [facility] HISTORY PHYSICALon HISTORY PHYSICAL HNO ID: [id number] Author: Ria Hawthorne Service: ? 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 Tania Hernandez APRN.[employer] May 18, 2020 This encounter was performed by Tania Hernandez APRN, under my supervision and I have reviewed her documentation. I performed an examination as well. I concur with the assessment and plan. 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 MGF [...] (myocardial infarction [Other]) Maternal Uncle 34 of [place] Social History Tobacco Use - Smoking status: [...] high fiber (more content not included)... Normal [facility] Free T4on 04-17-2020 Free T4 [Mass/Vol] 1.3 ng/dL Normal 0.9-1.7 [facility] Comment on above: Performed By: #### T , FT4 #### [facility] [address] [place] [address] TSHon 04-17-2020 TSH Qn 1.260 m[IU]/L Normal 0.270-4.200 [facility] Comment on above: Performed By: #### T , FT4 #### [facility] [address] [place], [place] [address] HBSABon 01-07-2019 Hep B Surf Ab 81.9 mIU/mL Normal [facility] ([place]) Comment on above: Result Comment: Anti -HBs [...] Performed By: #### L IPID, HBSAB #### [address] [address] LIPIDon 01-05-2019 Cholesterol in HDL [Mass/Vol] 43 mg/dL Normal 40-59 [facility] ([place]) Comment on above: Result Comment: HDL Reference Interval: Less than 40 Low - high risk 60 or above Optimal/lowers risk Performed By: #### L IPID, HBSAB #### [address] [address] Cholesterol in LDL [Mass/Vol] 103 mg/dL Normal 0-129 [facility] ([place]) Comment on above: Result Comment: LDL is a calculated result and requires a 12-hr fast. LDL Reference Interval: Less than 100 Optimal 100-129 Near or above optimal 130-159 Borderline high risk 160-189 High risk 190 and above Very high risk Performed By: #### L IPID, HBSAB #### [address] [address] Cholesterol [Mass/Vol] 160 mg/dL Normal 50-199 [facility] ([place]) Comment on above: Result Comment: Chol esterol Reference Interval: Less than 200 Desirable 200-239 Borderline high risk 240 and above High risk Performed By: #### L IPID, HBSAB #### [facility] [address] [place] [address] Triglyceride [Mass/Vol] 70 mg/dL Normal 3-149 A [facility] ([place]) Comment on above: Result Comment: Trig lyceride Reference Interval: Less than 150 Normal 150-199 Borderline high risk 200-499 High risk 500 or higher Very high risk Performed By: #### L IPID, HBSAB #### [facility] [address] [place] [address] EMERGENCY REPORTon 8 EMERGENCY REPORT [facility] EMERGENCY ROOM REPORT NAME ACCOUNT SEX AGE ADMIT DISCHARGE PT MED. RECORD# NUMBER DATE DATE TYPE CRISTÓBAL SKINNER [id number] M 07/05/17 07/05/17 3 [id number] ROOM: ER DATE OF : 1990 DICTATING [...] CRISTÓBAL SKINNER Emergency Room Report JOB #: [id number] Transcribed By: filiberto 07/05/17 19:29 Electronically signed by: JACQUIE Gerardo M.D. 07/17/17 07:48 Page 2 of 2 CRISTÓBAL SKINNER Emergency Room Report Normal [facility] KNEE COMPLETE RT MIN 4 VIEWS on 07-05-2017 [place] [address] Patient: CRISTÓBAL SKINNER. Phone#: : 1990 Age: 26 Gender: M Pt. Type: ER Account: [id number] Location: Ordering: MOSHE GERARDO Exam Date: 07/05/2017/10:53 Family Phys: Charge Code: 014781 Physician: Dodge Order #: [id number] DLP Dose#: PROCEDURE: X-RAY KNEE RT COMPLETE 4 VIEWS COMPARISON: None. INDICATIONS: Pain FINDINGS: BONES: Normal. No significant arthropathy or acute abnormality. SOFT TISSUES: Soft tissue swelling of the medial knee. EFFUSION: None visible. OTHER: Negative. CONCLUSION: 1. No acute osseous abnormality. Dictated by: Radha Negrete MD on 07/05/2017 at 11:21 Approved by: Radha Negrete MD on 07/05/2017 at 11:21 Normal [facility] Encounters Encounter Date Encounter Type Care Provider Facility Start: 12-05-2024 End: 12-05-2024 ambulatory No Primary Care Physician Facility:[facility] Start: 12-03-2024 Registered [facility] Work Phone: Start: 12-03-2024 ambulatory Health Risk Assessment Facility:[facility] Start: 12-03-2024 End: 12-03-2024 Patient encounter procedure Andrzej Graevs PA [facility] Work Phone: Start: 12-03-2024 End: 12-03-2024 ambulatory No Primary Care Physician Facility[place] Start: 04-15-2024 End: 04-15-2024 ambulatory No Primary Care Physician Facility:[facility] Start: 07-05-2017 End: 07-05-2017 Emergency department patient visit MOSHE Easley GERARDO [facility] Procedures Date Procedure Procedure Detail Performing Clinician [...] preservative free No Primary Care Physician [facility] 06-19-2014 tetanus toxoid, redu janessa diphtheria toxoid, and acellular pertussis vaccine, adsorbed No Primary Care Physician [facility] Payers Date Payer Category Payer Self-pay Unknown [id number] [id number] Unknown [id number] Unknown [id number] [id number] Unknown [id number] 2.16.8 [id number] Unknown [id number] [id number] [id number] Unknown [id number] Worker's Compensation [id number] Social History Date Type Detail Facility Start: 12-11-2019 [facility] Sex Male [facility] Start: 1990 Sex Assigned At Male [facility] Progress note 04-06-2023 Note Date & Type Note Facility 04-06-2023 Progress note [facility] Progress note 12-09-2020 Note Date & Type Note Facility 12-09-2020 Note HNO ID: [id number] Author: Elli Krishnan Population Health Navigator Service: [...] Outcome/Action Unable to reach patient: Left message [employer] message sent Reason for Outreach Attribution: Provider [...] future healthcare decisions with a power of health care attorney, living will, or advance directives? No. Please bring a copy to your next appointment or email to Referrals: N/A Message Sent to Practice: NO Navigation Signature: Elli Krishnan Population Health Navigator December 09, 2020 1:12 PM [facility] Clinical Note 12-09-2020 Note Date & Type Note Facility 12-09-2020 Note Patient Outreach (NE FREDERICAV) CRISTÓBAL SKINNER ([id number]) 1990 M Date Time Provider Department 12/09/20 [...] Outcome/Action Unable to reach patient: Left message [employer] message sent Reason for Outreach Attribution: Provider [...] future healthcare decisions with a power of health care attorney, living will, or advance directives? No. Please bring a copy to your next appointment or email to [email or web address] Referrals: N/A Message Sent to Practice: NO Navigation Signature: Elli Krishnan Population Health Navigator December 09, 2020 1:12 PM Allergies As of Date: 12/09/2020 (No Known Allergies) Date Reviewed: 05/18/2020 Reviewed by: Lian Castillo LPN - Fully Assessed Reason for Visit: Population Health Navigation Outreach [3470] Cmt: Offboarding Prescriptions as of 12/09/2020 - [...] stress disorder) [F43.10] 08/24/2017 Encounter Status:Closed by [facility]ATOR, ELLI Conner on 12/09/20 [facility] Progress note 04-17-2020 Note Date & Type Note Facility 04-17-2020 Note HNO ID: [id number] Author: Aly Lee III Service: ? 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 MGF [...] (myocardial infarction [Other]) Maternal Uncle 34 of [place] Social History Tobacco Use - Smoking status: [...] 4 - Moderate Aly Lee III MD [facility] Evaluation note Note Date & Type Note Facility Evaluation note No assessment information availa ble [facility] Work Phone: Progress note Note Date & Type Note Facility Progress note Note Date/Time December 09, 2024 7:50am [facility] [address] [address] OFFICE VISIT Date of Service: 12/03/24 MR#: [id number] Acct: [id number] Patient: CRISTÓBAL SKINNER Rep #: [id number] : 1990 Provider: LILY Pérez Age/Sex: 34/M Location[place] [facility] Status: Signed Intake Vital Signs 04/06/23 08:20 [...] intradermal injection solution was administered Lot number: [id number] Whipper Beater: SANOFI date: 03/16/27 PPD Location: Right forearm Date PPD Placed: 12/03/24 Time PPD Placed: 09:20 PPD Placed By: Jolie Erickson Assessment and Plan Assessment and Plan Orders: Orders POC TB PPD SKIN Test (Clinic) 12/05/24 Z02.89 - Encounter for other administrative examinations 12/09/24 0650 <Electronically signed by Andrzej BAUTISTA> Date _ Andrzej BAUTISTA Cosigner Signature: Date (if applicable) CC: ~ [facility] Work Phone: Reason for referral (narrative) Note Date & Type Note Facility Reason for referral (narrative) No reason for referral information available [facility] Work Phone: Summary Purpose Family History No [...] content) DATE CREATED AUTHOR 08/01/2017 Yuri Tai [facility] DATE CREATED AUTHOR AUTHOR'S ORGANIZ ATION 01/07/2019 [facility] ([place] DATE CREATED AUTHOR AUTHOR'S ORGANIZ ATION 03/20/2021 [facility] DATE CREATED AUTHOR AUTHOR'S ORGANIZ ATION 12/09/2024 [facility] Care Teams (unrecognized sec tion and [...] BE BASED ON THE PRIMARY CLINICAL RECORDS. [employer] [facility]. provides no warranty or guarantee of the accuracy or completeness of information in this document.
== END 2025-01-06 21:41 | disposition home or self-care (01) ==
LOC: ED 20:23
PROVIDERS: Visit Provider Emergency Medicine
DX: Z77.21 Contact with and (suspected) exposure to potentially hazardous body fluids (principal)
CPT/HCPCS: 86703; 86706; 86803; 87340